=== PATIENT | female | born 1950 | race Caucasian/White ===

== ENCOUNTER 2020-05-13 10:06 | Outpatient (CLI) | payer MEDICARE, BC, SELFPAY ==
--- NOTE | 2020-05-13 10:11 | MM_ITS ---
WS: [id number] Bilateral screening digital mammogram, 05/13/2020 Clinical Data: SCREENING Comparison: 02/27/2019, 08/01/2017, 06/09/2015, 05/28/2013, 10/14/2009, 03/04/2006. Findings: The breast parenchymal pattern shows extreme density No spiculated masses or clustered calcifications are seen. There are no secondary signs of carcinoma. MM/[place] [id number] Impression: 1. Negative bilateral mammogram unchanged. 2. Recommend annual screening mammograms. BIRADS: 1-Negative FOLLOW UP: 1 Year Follow-up The CAD food checkers and cashiers supervisor was used.
== END 2020-05-13 10:07 | disposition home or self-care (01) ==
LOC: RADSHAW 10:09
PROVIDERS: PCP Family Medicine; Visit Provider Family Medicine
DX: Z12.31 Encounter for screening mammogram for malignant neoplasm of breast (principal)
CPT/HCPCS: 77067

== ENCOUNTER 2021-12-14 08:23 | Outpatient (CLI) | payer MEDICARE, BC, SELFPAY ==
--- NOTE | 2021-12-14 08:31 | MM_ITS ---
WS: [id number] BILATERAL SCREENING DIGITAL BREAST TOMOSYNTHESIS MAMMOGRAM WITH CAD HISTORY: SCREENING COMPARISON: 05/13/2020 and 02/27/2019 Bilateral CC and MLO views with tomosynthesis and synthetic mammography submitted. Computer aided det ection analyzed. Breast composition: The breasts are extremely dense, which lowers the sensitivity of mammography. No suspicious masses, microcalcifications or architectural distortion. Benign calcifications RIGHT breas t. MM/[place] [id number] IMPRESSION: BI-RADS: 2-Benign FOLLOW UP: 1 Year Follow-up
== END 2021-12-14 08:24 | disposition home or self-care (01) ==
LOC: RAD 08:25
PROVIDERS: PCP Family Medicine; Visit Provider Family Medicine
DX: Z12.31 Encounter for screening mammogram for malignant neoplasm of breast (principal)
CPT/HCPCS: 77063; 77067

== ENCOUNTER → 2022-01-11 13:13 | Outpatient (BNVA) | payer MEDICARE, BC, SELFPAY | PROVIDERS: PCP Family Medicine; Visit Provider Internal Medicine | DX: I25.10 Atherosclerotic heart disease of native coronary artery without angina pectoris (principal); E78.5 Hyperlipidemia, unspecified; Z98.61 Coronary angioplasty status; J44.9 Chronic obstructive pulmonary disease, unspecified | CPT/HCPCS: 99214 ==

== ENCOUNTER → 2022-10-11 14:49 | Outpatient (BNVA) | payer MEDICARE, SELFPAY | PROVIDERS: PCP Family Medicine; Visit Provider Internal Medicine | DX: I25.10 Atherosclerotic heart disease of native coronary artery without angina pectoris (principal); E78.5 Hyperlipidemia, unspecified; Z98.61 Coronary angioplasty status; J44.9 Chronic obstructive pulmonary disease, unspecified; Z79.82 Long term (current) use of aspirin | CPT/HCPCS: 99214 ==

== ENCOUNTER 2022-11-15 07:40 | Outpatient (CLI) | payer MEDICARE, SELFPAY ==
--- NOTE | 2022-11-15 | ECG_ITS ---
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 Interpretive Statements NAME OF STUDY: LEXISCAN SESTAMIBI STRESS TEST INDICATION: [Chest Pain; Shortness of Breath, ] Procedure: At the baseline, the blood pressure was 135/78 mmHg with a heart rate of 51 bpm. The electrocardiogram showed sinus bradycardia, normal axis with normal ST and T's. The Lexiscan was infused over a period of 20 seconds. A total of 0.4 mg of Lexiscan was infused. The stress phase was continued for a total of 5 minutes. Heart rate was at the end of stress phase was 72 bpm and a blood pressure of 142/76 mmHg. The EKG at the peak infusion revealed normal sinus rhythm with no significant ST-T wave changes. Sestamibi was injected 20 seconds after the Lexiscan infusion. Blood pressure at the end of recovery phase was 139/74 mmHg with a heart rate of 71 bpm. Conclusion: 1. Normal EKG response to Lexiscan infusion 2. No Lexiscan induced chest pain or cardiac arrhythmia. 3. Normal blood pressure and heart rate response. 4. Sestamibi/sestamibi perfusion scan pending; see separate report. Electronically Signed On 11-16-2022 15:07:33 CDT by Dominick Tran M.D. [id number]
--- NOTE | 2022-11-15 07:52 | NMCV_ITS ---
NM cammie perf SPECT r/s* [id number] Bailee Fairchild Age: 72 Gender: F : 1950 Exam Date: 11/15/2022 07:52 Ordering Phys: Dominick Tran M.D ([email or web address]) Technologist: TOD Calvillo Exam Location: [facility] Indications: CHEST PAIN, SHORTNESS OF BREATH STRESS TEST Please see separate stress [facility] for full findings IMAGE PROTOCOL Rest/Stress 1 Lexiscan Day Radiopharmaceutical Dose (mCi) Administration Site Administered by Rest: Tc-99m 10.9 IV TOD Calvillo Sestamibi Stress:Tc-99m 32.7 IV TOD Hinojosa Sestamibi Rest: 15-Nov-2022 60 Discovery 630 Stress: 15-Nov-2022 30 Discovery 630 0.4mg Lexiscan. Images obtained in supine and prone position. SPECT RESULTS Technical Quality: Excellent Raw Data Analysis: Normal Image Corrections: No attenuation or motion correction applied Summed Stress Score: 0 Summed Rest Score: 0 Summed Difference Score: 0 PERFUSION FINDINGS SPECT images demonstrate homogeneous tracer distribution throughout the myocardium. FUNCTIONAL RESULTS (calculated via Gated SPECT) Stress Image LV EF (%): 76 Stress EDV (mL):78 TID: 1.02 Stress ESV (mL):19 FUNCTIONAL FINDINGS: There is normal left ventricular systolic function. IMPRESSIONS 1. Normal myocardial perfusion imaging with no evidence of ischemia 2. LV systolic function is normal Dominick Tran MD (Electronically Signed) Final Date: 15 November 2022 17:00 S
[2022-11-15 08:13] VITALS: BMI 26.9
[2022-11-15] MEDS: regadenoson 0.4 Mg/5 ml Syringe IVP (10:02)
[2022-11-15 11:13] VITALS: BP 143/77; PULSE 73
== END 2022-11-15 07:41 | disposition home or self-care (01) ==
LOC: CDL 07:41
PROVIDERS: PCP Family Medicine; Visit Provider Internal Medicine
DX: R07.9 Chest pain, unspecified (principal); R06.02 Shortness of breath
CPT/HCPCS: 36415; 78452; 93017; 96374; A9500; J2785

== ENCOUNTER 2023-04-25 07:41 | Outpatient (CLI) | payer MEDICARE, SELFPAY ==
--- NOTE | 2023-04-25 08:15 | MM_ITS ---
WS: [id number] BILATERAL SCREENING DIGITAL TOMOSYNTHESIS MAMMOGRAM WITH CAD HISTORY: SCREENING COMPARISON: 12/14/2021, 05/13/2020 and 08/01/2017 Bilateral CC and MLO views with tomosynthesis and synthetic mammography submitted. Computer aided det ection analyzed. Breast composition: The breasts are heterogeneously dense, which may obscure small masses. No suspici ous masses, microcalcifications or architectural distortion. Long-term stability of an asymmetry in t he superior LEFT breast seen on the MLO projection. IMPRESSION: MM/[place] [id number] BI-RADS: 2-Benign FOLLOW UP: 1 Year Follow-up
== END 2023-04-25 07:42 | disposition home or self-care (01) ==
LOC: RAD 07:41
PROVIDERS: PCP Family Medicine; Visit Provider Family Medicine
DX: Z12.31 Encounter for screening mammogram for malignant neoplasm of breast (principal)
CPT/HCPCS: 77063; 77067

== ENCOUNTER → 2023-04-30 12:44 | Outpatient (BNVA) | payer MEDICARE, SELFPAY | PROVIDERS: PCP Family Medicine; Visit Provider Internal Medicine Cardiovascular Disease | DX: J44.9 Chronic obstructive pulmonary disease, unspecified (principal); I25.10 Atherosclerotic heart disease of native coronary artery without angina pectoris; E78.5 Hyperlipidemia, unspecified; Z98.61 Coronary angioplasty status | CPT/HCPCS: 99213 ==

== ENCOUNTER → 2023-10-30 11:44 | Outpatient (BNVA) | payer MEDICARE, SELFPAY | PROVIDERS: PCP Family Medicine; Visit Provider Internal Medicine Cardiovascular Disease | DX: I25.10 Atherosclerotic heart disease of native coronary artery without angina pectoris (principal); Z98.61 Coronary angioplasty status; E78.5 Hyperlipidemia, unspecified; J44.9 Chronic obstructive pulmonary disease, unspecified | CPT/HCPCS: 99213 ==

== ENCOUNTER 2024-04-29 07:36 | Outpatient (CLI) | payer MEDICARE, SELFPAY ==
--- NOTE | 2024-04-29 07:44 | MM_ITS ---
WS: [id number] BILATERAL SCREENING DIGITAL TOMOSYNTHESIS MAMMOGRAM WITH CAD HISTORY: SCREENING COMPARISON: 04/25/2023, 12/14/2021, 02/27/2019 Bilateral CC and MLO views with tomosynthesis and synthetic mammography submitted. Computer aided det ection analyzed. Breast composition: The breasts are extremely dense, which lowers the sensitivity of mammography. No suspicious masses, microcalcifications or architectural distortion. Long-term stability ovoid asymmet ry in the upper outer quadrant LEFT breast. Benign vascular calcifications in each breast. MM/MM scr tomosynthesis [id number] IMPRESSION: BI-RADS: 2 - Benign FOLLOW UP: 1 Year Follow-up
== END 2024-04-29 07:37 | disposition home or self-care (01) ==
PROVIDERS: PCP Family Medicine; Visit Provider Family Medicine
DX: Z12.31 Encounter for screening mammogram for malignant neoplasm of breast (principal); R92.333 Mammographic heterogeneous density, bilateral breasts; N64.89 Other specified disorders of breast; R92.1 Mammographic calcification found on diagnostic imaging of breast
CPT/HCPCS: 77063; 77067

== ENCOUNTER → 2024-05-05 13:54 | Outpatient (BNVA) | payer MEDICARE, SELFPAY | PROVIDERS: PCP Family Medicine; Visit Provider Internal Medicine Cardiovascular Disease | DX: I25.10 Atherosclerotic heart disease of native coronary artery without angina pectoris (principal); J44.9 Chronic obstructive pulmonary disease, unspecified; E78.5 Hyperlipidemia, unspecified; I10 Essential (primary) hypertension | CPT/HCPCS: 99213 ==

== ENCOUNTER 2024-09-05 22:41 | Inpatient (IN) | payer MEDICARE, SELFPAY ==
[2024-09-05 23:04] VITALS: BP 113/61; PULSE 74; RESP 16; TEMP 37.1; O2SAT 95
[2024-09-05 23:53] VITALS: BP 94/43; PULSE 74; RESP 16; O2SAT 96
[2024-09-06] VITALS (65 sets, daily range): BP systolic 77–127; BP diastolic 35–78; PULSE 63–88; RESP 15–16; TEMP 37; O2SAT 90–99; BMI 25.9
--- NOTE | 2024-09-06 00:02 | CTR_ITS ---
PROCEDURE INFORMATION: Exam: CT Head Without Contrast Exam date and time: 09/06/2024 12:48 AM Age: 74 years old Clinical indication: Pain; Headache; C/O HUERTA with n/v; Additional info: Severe HUERTA TECHNIQUE: Imaging protocol: Computed tomography of the head without contrast. Radiation optimization: All CT scans at this facility use at least one of these dose optimization techniques: automated exposure control; mA and/or kV adjustment per patient size (includes targeted exams where dose is matched to clinical indication); or iterative reconstruction. COMPARISON: CT head wo con* [id number] 04/12/2018 11:45 PM RADIATION DOSE METRICS: Total DLP (mGy-cm): 1077.2 FINDINGS: Brain: No acute intracranial hemorrhage, mass effect or midline shift. White matter hypodensities most likely from chronic microangiopathy. Cerebral ventricles: No ventriculomegaly. Paranasal sinuses: Visualized sinuses are unremarkable. No fluid levels. Mastoid air cells: Visualized mastoid air cells are well aerated. Bones: No acute bony findings. Soft tissues: Unremarkable. CT/CT head wo con* [id number] IMPRESSION: No acute intracranial findings.
[2024-09-06 00:17] LABS: INR 1.09 (0.8-1.2)
[2024-09-06 00:18] LABS: Partial Thromboplastin Time 28.5 SECONDS (23.9-36.7)
[2024-09-06 00:26] LABS: Alanine Aminotransferase 13 U/L (0-33); Albumin Level 3.9 g/dL (3.5-5.2); Alkaline Phosphatase 77 U/L (35-105); Anion Gap 18.5 (5-19); Aspartate Amino Transferase 23 U/L (0-32); Blood Urea Nitrogen 45 mg/dL (8-23); Calcium 9.4 mg/dL (8.5-10.5); Carbon Dioxide 23 mmol/L (22-29); Chloride 91 mmol/L (98-107); Creatinine Clr Calc Pharmacy 19.9952; Globulin 3.3 g/dL (1.3-4.6); Glucose 117 mg/dL (65-115); Osmolality Calculated 279 mOsm/kg (285-295); Potassium 4.5 mmol/L (3.5-5.1); Sodium 128 mmol/L (136-145); Total Bilirubin 1.7 mg/dL (0.15-1.2); Total Protein 7.2 g/dL (6.6-8.7)
[2024-09-06] MEDS: sodium chloride 0.9% 1,000 ML 999 ML IV ×2 (00:33→00:36)
[2024-09-06 00:35] LABS: D Dimer 2.65 ug/mLFEU (0-0.59)
[2024-09-06 00:35] LABS: Lactic Sepsis W/Reflex 2.5 mmol/L (0.5-2.2)
[2024-09-06 00:55] LABS: Basophils # 0.2 10^3/uL (0.0-0.1); Basophils % 0.8 %; Eosinophils # 0.2 10^3/uL (0.0-0.8); Lymphocytes # 0.6 10^3/uL (0.8-4.8); Lymphocytes % 3.1 %; Mean Corpuscular HGB Conc 32.9 g/dL (30-55); Mean Corpuscular Hemoglobin 30.7 pg (27-33); Mean Corpuscular Volume 93.5 fl (85-98); Monocytes # 0.7 10^3/uL (0.2-0.9); Monocytes % 3.6 %; Neutrophils # 17.94 10^3/uL (1.8-7.7); Neutrophils % 90.5 %; Nucleated Red Blood Cells % 0 %; Platelet Count 214 10^3/cmm (157-399); Red Blood Count 4.49 10^6/uL (3.85-5.65); Red Cell Distribution Width 11.9 % (12.1-15.1); Slide Review Slide Review Perform; White Blood Count 19.82 10^3/uL (3.29-11.43)
--- NOTE | 2024-09-06 01:04 | CTR_ITS ---
PROCEDURE INFORMATION: Exam: CTA Chest With Contrast Exam date and time: 09/06/2024 1:12 AM Age: 74 years old Clinical indication: Pain and abnormal findings; Abnormal lab test; Abnormal function test of other organs/systems and elevated wbc; Nausea and vomiting; Abdominal pain; Localized; Left upper quadrant (luq); Abnormal diagnostic tests; Elevated d-dimer; Shortness of breath; Other: N/a; Prior surgery; Surgery date: 6+ months; Surgery type: Coronary stent; C/O SOB with hypotension and luq pain. Dimer of 2.6. Wbc of 20k. Elevated bilirubin and crp. History of copd. ; Additional info: Luq left lower chest pain TECHNIQUE: Imaging protocol: Computed tomographic angiography of the chest with contrast. Exam focused on the arteries. 3D rendering (Not supervised by radiologist): MIP and/or 3D reconstructed images were created by the technologist. Radiation optimization: All CT scans at this facility use at least one of these dose optimization techniques: automated exposure control; mA and/or kV adjustment per patient size (includes targeted exams where dose is matched to clinical indication); or iterative reconstruction. Contrast material: OMNI 350; Contrast volume: 100 ml; Contrast route: INTRAVENOUS (IV); COMPARISON: CR XR chest 1V [id number] 04/12/2018 10:31 PM RADIATION DOSE METRICS: Total DLP (mGy-cm): 666.7 FINDINGS: Pulmonary arteries: No pulmonary emboli. Aorta: No aortic aneurysm. No aortic dissection. Lungs: Left upper lobe consolidation with air bronchograms. Left lower lobe nodule measuring 1.0 cm. Pleural spaces: No pneumothorax. No pleural effusion. Heart: No cardiomegaly. No pericardial effusion. Lymph nodes: No enlarged lymph nodes. Bones/joints: No acute fracture. Soft tissues: Unremarkable. PROCEDURE INFORMATION: Exam: CT Abdomen And Pelvis With Contrast Exam date and time: 09/06/2024 1:12 AM Age: 74 years old Clinical indication: Pain and abnormal findings; Abnormal lab test; Abnormal function test of other organs/systems and elevated wbc; Nausea and vomiting; Abdominal pain; Localized; Left upper quadrant (luq); Abnormal diagnostic tests; Elevated d-dimer; Shortness of breath; Other: N/a; Prior surgery; Surgery date: 6+ months; Surgery type: Coronary stent; C/O SOB with hypotension and luq pain. Dimer of 2.6. Wbc of 20k. Elevated bilirubin and crp. History of copd. ; Additional info: Luq left lower chest pain TECHNIQUE: Imaging protocol: Computed tomography of the abdomen and pelvis with contrast. Radiation optimization: All CT scans at this facility use at least one of these dose optimization techniques: automated exposure control; mA and/or kV adjustment per patient size (includes targeted exams where dose is matched to clinical indication); or iterative reconstruction. Contrast material: OMNI 350; Contrast volume: 100 ml; Contrast route: INTRAVENOUS (IV); COMPARISON: CR XR chest 1V [id number] 04/12/2018 10:31 PM RADIATION DOSE METRICS: Total DLP (mGy-cm): 666.7 FINDINGS: Liver: Right hepatic lobe cyst measuring 1.0 cm. Gallbladder and biliary ducts: Unremarkable. No calcified stones. No ductal dilation. Pancreas: Unremarkable. No ductal dilation. Spleen: Unremarkable. No mass. Adrenal glands: Unremarkable. No mass. Kidneys and ureters: Bilateral renal cysts, measuring to 1.5 cm. No hydronephrosis. Stomach and bowel: Colonic diverticulosis. No acute diverticulitis. No significant mucosal thickening. No bowel obstruction. Appendix: No evidence of appendicitis. Intraperitoneal space: No free air. No significant fluid collection. Vasculature: No abdominal aortic aneurysm. Lymph nodes: No enlarged lymph nodes. Urinary bladder: Unremarkable as visualized. Reproductive: Prominent bilateral ovarian and adnexal veins. Ill-defined submucosal lesion abutting the endometrium which is thickened (series 14, image 13). Bones/joints: No acute fracture. No suspicious lesion. Soft tissues: No bowel containing hernia. CT/CT angio chest w abd pel w con IMPRESSION: 1. No Pulmonary embolism. 2. Left upper lobe pneumonia. 3. 1.0 cm left lower lobe nodule. Per Chen society guidelines, consider follow-up CT in 3 months, PET-CT, or tissue sampling IMPRESSION: 1. No acute intra-abdominal findings. 2. Findings which may represent sequelae of pelvic congestion syndrome. 3. Endometrial thickening with possible submucosal lesion. Recommend follow-up pelvic ultrasound for further evaluation. COMMENTS: Consistent with the [employer]'s Incidental Findings Committee white paper (J Am Aurea Radiol 2018): Any incidental renal lesion less than 1 cm or classified as too small to characterize, or any incidental cystic renal lesion characterized as simple-appearing, is likely benign. No follow-up imaging is recommended for these lesions per consensus recommendations based on imaging criteria.
[2024-09-06] MEDS: iohexol 350 mg/mL 500 mL Btl (per mL) IV (01:15)
--- NOTE | 2024-09-06 01:48 | ED_ITS ---
HPI - General Adult 2 General: Chief complaint: Headache Stated complaint: extreme pressure in head cant eat/drink no urine Time Seen by Provider: 09/06/24 00:04 History of Present Illness: 74-year-old female who says she has been sick for the past couple of days. She says she has not been able to eat or drink much. She has had a global headache. She has had a pain in her left side of her chest and upper abdomen. No fever. She states she has been cold all the time. Generally weak. Related Data Home Medications ?Medication ?Instructions ?Recorded ?Confirmed alendronate 70 mg tablet mg PO 04/30/23 09/05/24 levothyroxine 75 mcg capsule 25 mcg PO DAILY 04/30/23 09/05/24 albuterol sulfate 2.5 mg/3 mL 2.5 mg inhalation DAILY 10/30/23 09/05/24 (0.083 %) solution for nebulization aspirin 81 mg tablet,delayed 81 mg PO DAILY 10/30/23 0 09/05/24 release lisinopril 10 1 tab PO DAILY 10/30/2308/2525 mg-hydrochlorothiazide 12.5 mg tablet budesonide 160 mcg-glycopyr 9 2 inh inhalation BID 03/1909/05/24 mcg-formot 4.8 mcg/actuation HFA inhaler (Breztri Vessix Vascularphere) Previous Rx's ?Medication ?Instructions ?Recorded nitroglycerin 0.4 mg sublingual 0.4 mg sublingual Q5M PRN chest 10/11/22 tablet pain #25 tabs rosuvastatin 20 mg tablet See Rx Instructions .Route 0 07/16/24 .COMPLEX #90 tabs metoprolol tartrate 25 mg tablet See Rx Instructions . Route 08/10/24 .COMPLEX #180 tabs fluticasone propionate 50 1 spray intranasal BID PRN 0 09/05/24 mcg/actuation nasal congestion #16 grams spray,suspension (Children's Flonase Allergy Relief) Allergies Allergy/AdvReac Type Severity Reaction Status Date / Time No Known Allergies Allergy Verified 09/05/24 23:08 [facility] ED 2 PFS: Medical History (Updated 09/06/24 @ 01:51 by Bebo Ford DO) Asthma COPD (chronic obstructive pulmonary disease) ASHD (arteriosclerotic heart disease) Dyslipidemia Surgical History S/P PTCA (percutaneous transluminal coronary angioplasty) Family History Father CAD (coronary artery disease) Social History Smoking and tobacco/nicotine status: never used tobacco/nicotine Alcohol intake: current Alcohol intake frequency: holidays/special occasions only Alcohol type: wine Substance/Drug Use: never Physical Exam 2 Const: GENERAL APPEARANCE: cooperative and ill appearing O RIENTATION/CONSCIOUSNESS: Yes awake HENMT: COMMON NORMALS: normocephalic, atraumatic and Normal external nose present HEAD & SCALP: normocephalic and atraumatic FACE & SINUS: normal facial exam and face symmetric NOSE: Normal external nose present Eye: COMMON NORMALS: Equal, round and reactive pupils present and EOMs intact bilaterally PUPIL: Yes Equal, round and reactive pupils present Neck/C-Spine: GENERAL: Yes trachea midline Chest: CHEST: Yes Symmetrical chest wall rise Resp: COMMON NORMALS: normal respiratory effort, No retractions and No use of accessory muscles Cardio: COMMON NORMALS: regular rate and regular rhythm RATE: regular rate RHYTHM: regular rhythm GI: COMMON NORMALS: Normal to inspection, nondistended, normoactive bowel sounds present Extremity: COMMON NORMALS: no pedal edema Neuro: NICHOLE COMA SCALE: document GCS findings Nichole coma scale eye opening: Spontaneous Nichole coma scale verbal response: Orientated [place] coma scale motor response: Obey commands [place] coma scale total score: 15 S ENSORY EXAM: Yes extremities (intact) Psych: COMMON NORMALS: speech normal SPEECH: Yes normal speech Skin: COMMON NORMALS: no rashes or lesions noted GENERAL SKIN EXAM: no rashes or lesions noted Course 2 Vital Signs: Vital signs: Vital Signs Temperature 98.8 F 09/05/24 23:04 Pulse Rate 70 09/06/24 02:27 Respiratory Rate 16 09/06/24 02:27 Blood Pressure 96/53 09/06/24 03:27 Pulse Oximetry 92 09/06/24 03:27 Oxygen Delivery Me thod Room Air 09/06/24 03:27 [facility] - General Adult Medical Decision Making Pain on palpation is minimally reproducible. Her blood pressure is low on arrival. She is given a sepsis bolus of more than 30 mL/kg. White blood cell count is 20. Creatinine is 2.2. Head CT is nonacute. Chest abdomen pelvis CT shows a left upper lobe pneumonia. She is given Rocephin and Zithromax after blood cultures. She will require fluid support, blood pressure support, etc. Spoke with hospitalist. Agrees to admission. She will go to the ICU. Started on Levophed here, as MAP was still low. Current blood pressure 104/50. Lab Data 09/06/24 00:00 09/06/24 00:[address] 09/06/24 00:02 IMPRESSION: No acute intracranial findings. Chest/Abdomen/Pelvis CT 09/06/24 01:04 IMPRESSION: 1. No Pulmonary embolism. 2. Left upper lobe pneumonia. 3. 1.0 cm left lower lobe nodule. Per Chen society guidelines, consider follow-up CT in 3 months, PET-CT, or tissue sampling IMPRESSION: 1. No acute intra-abdominal findings. 2. Findings which may represent sequelae of pelvic congestion syndrome. 3. Endometrial thickening with possible submucosal lesion. Recommend follow-up pelvic ultrasound for further evaluation. COMMENTS: Consistent with the [employer]'s Incidental Findings Committee white paper (J Am Aurea Radiol 2018): Any incidental renal lesion less than 1 cm or classified as too small to characterize, or any incidental cystic renal lesion characterized as simple-appearing, is likely benign. No follow-up imaging is recommended for these lesions per consensus recommendations based on imaging criteria. Laboratory Results WBC 19.82 10^3/uL (3.29-11.43) H 09/06/24 00:00 RBC 4.49 10^6/uL (3.85-5.65) 09/06/24 00:00 Hgb 13.80 g/dL (11.27-16.99) 09/06/24 00:00 Hct 42.0 % (36-47) 09/06/24 00:00 MCV 93.5 fl (85-98) 09/06/24 00:00 MCH 30.7 pg (27-33) 09/06/24 00:00 MCHC 32.9 g/dL (30-55) 09/06/24 00:00 RDW 11.9 % (12.1-15.1) L 09/06/24 00:00 Plt Count 214 10^3/cmm (157-399) 09/06/24 00:00 MPV 11.0 fL (7.4-10.4) H 09/06/24 00:00 Neut % (Auto) 90.5 % 09/06/24 00:00 Lymph % (Auto) 3.1 % 09/06/24 00:00 Dillon % (Auto) 3.6 % 09/06/24 00:00 Eos % (Auto) 1.0 % 09/06/24 00:00 Baso % (Auto) 0.8 % 09/06/24 00:00 Neut # (Auto) 17.94 10^3/uL (1.8-7.7) H 09/06/24 00:00 Lymph # (Auto) 0.6 10^3/uL (0.8-4.8) L 09/06/24 00:00 Dillon # (Auto) 0.7 10^3/uL (0.2-0.9) 09/06/24 00:00 Eos # (Auto) 0.2 10^3/uL (0.0-0.8) 09/06/24 00:00 Baso # (Auto) 0.2 10^3/uL (0.0-0.1) H 09/06/24 00:00 Nucleated RBC % (auto) 0 % 09/06/24 00:00 Nucleated RBCs # 0.0 /100WBC 09/06/24 00:00 PT 14.90 SECONDS (12.1-14.9) 09/06/24 00:00 INR 1.09 (0.8-1.2) 09/06/24 00:00 APTT 28.5 SECONDS (23.9-36.7) 09/06/24 00:00 D-Dimer 2.65 ug/mLFEU (0-0.59) H 09/05/24 23:56 Sodium 128 mmol/L (136-145) L 09/06/24 00:00 Potassium 4.5 mmol/L (3.5-5.1) 09/06/24 00:00 Chloride 91 mmol/L (98-107) L 09/06/24 00:00 Carbon Dioxide 23 mmol/L (22-29) 09/06/24 00:00 Anion Gap 18.5 (5-19) 09/06/24 00:00 BUN 45 mg/dL (8-23) H 09/06/24 00:00 Creatinine 2.2 mg/dL (0.5-0.9) H 09/06/24 00:00 GFR Calculation Not Reportable 09/06/24 00:00 Glucose 117 mg/dL (65-115) H 09/06/24 00:00 Calculated Osmolality 279 mOsm/kg (285-295) L 09/06/24 00:00 Lactic Acid 2.5 mmol/L (0.5-2.2) H 09/06/24 00:00 Calcium 9.4 mg/dL (8.5-10.5) 09/06/24 00:00 Total Bilirubin 1.7 mg/dL (0.15-1.2) H 09/06/24 00:00 AST 23 U/L (0-32) 09/06/24 00:00 ALT 13 U/L (0-33) 09/06/24 00:00 Alkaline Phosphatase 77 U/L (35-105) 09/06/24 00:00 C-Reactive Protein 313.0 mg/L (0.0-4.9) H 09/06/24 00:00 Total Protein 7.2 g/dL (6.6-8.7) 09/06/24 00:00 Albumin 3.9 g/dL (3.5-5.2) 09/06/24 00:00 Globulin 3.3 g/dL (1.3-4.6) 09/06/24 00:00 Urine Color Yellow (Yellow) 09/06/24 01:45 Urine Appearance Slightly cloudy (CLEAR) 09/06/24 01:45 Urine pH 5 (5-7) 09/06/24 01:45 Ur Specific [place] 1.015 (1.005-1.030) 09/06/24 01:45 Urine Protein 1+ (Negative) A 09/06/24 01:45 Urine Glucose (UA) Norm (Normal) 09/06/24 01:45 Urine Ketones Negative (Negative) 09/06/24 01:45 Urine Blood Neg (Negative) 09/06/24 01:45 Urine Nitrate Negative (Negative) 09/06/24 01:45 Urine Bilirubin 1+ (Negative) H 09/06/24 01:45 Urine Urobilinogen 1 mg/dL (Negative) H 09/06/24 01:45 Ur Leukocyte Esterase 2+ (Negative) A 09/06/24 01:45 Urine RBC 3-5 /hpf (0-2) 09/06/24 01:45 Urine WBC 51-100 /hpf (0-5) H 09/06/24 01:45 Ur Squamous Epith Cells 11-20 /hpf (0-5) H 09/06/24 01:45 Amorphous Sediment Not Reportable 09/06/24 01:45 Urine Bacteria None seen /hpf (NONE) 09/06/24 01:45 Hyaline Casts 127.02 /lpf 09/06/24 01:45 Influenza A (PCR) Negative (Negative) 09/06/24 01:45 Influenza Type B (PCR) Negative (Negative) 09/06/24 01:45 RSV (PCR) Negative (Negative) 09/06/24 01:45 SARS-CoV-2 (PCR) Negative (Negative) 09/06/24 01:45 All radiology interpretation(s) finalized by discharge Critical Care Time 2 Critical Care Time: Critical Care Time: Yes Total Critical Care Time: 40 Attestation: This case had a high probability of a clinically significant, sudden, or life threatening deterioration of this patient's condition which required my full and direct attention, intervention and personal management. Time is independent of any procedures performed. Discharge Plan Discharge Patient Disposition: Admitted As Inpatient Admit Provider: Sai Rosenbaum Clinical Impression: Community acquired pneumonia of left upper lobe of lung, Sepsis Condition: Serious Coding Level of Care Code ED Inventory Control/Shipping Receiving for Kaylee Vazquez
[2024-09-06 01:56] LABS: Reflex Lactate Order REFLEX LACTIC ORDERD
[2024-09-06 01:58] LABS: Bacteria Urine None Seen /hpf; Hyaline Casts Urine 127.02 /lpf; Universal Test for UA Present (0); WBC Urine 51-100 /hpf (0-5)
[2024-09-06] MEDS: sodium chloride 0.9% 1,000 ML 150 ML IV (01:59)
[2024-09-06 02:05] LABS: Urine Appearance Slightly Cloudy (CLEAR); Urine Color Yellow (Yellow)
[2024-09-06 02:06] LABS: Add Urine Culture? No; Add Urine Microscopic? YES; Bilirubin Urine 1+ (Negative); Blood Urine Neg (Negative); Glucose Urine UA Norm (Normal); Ketones Urine Negative (Negative); Leukocyte Esterase Urine 2+ (Negative); Nitrate Urine Negative (Negative); Protein Urine 1+ (Negative); Specific Gravity, Urine 1.015 (1.005-1.030); Urobilinogen Urine 1 mg/dL (Negative); pH Urine 5 (5-7)
[2024-09-06] MEDS: cefTRIAXone 1,000 mg SDV 1000 MG IVP ×2 (02:09→04:55)
[2024-09-06] MEDS: AZITHROMYCIN ADD-Vantage 500 MG in 0.9% NaCl ADD-Vantage 250 ML 250 MG IV (02:10)
[2024-09-06 02:29] LABS: Influenza A NEGATIVE (Negative); Influenza B NEGATIVE (Negative); Respiratory Syncytial Virus Ce NEGATIVE (Negative); SARS-CoV-2 PCR NEGATIVE (Negative)
[2024-09-06] MEDS: norepinephrine 4 MG/250 ML BAG 30 MG IV (02:36)
--- NOTE | 2024-09-06 04:02 | P.HP_ITS ---
Providers/Chief Complaint 2 Admitting Physician: Sai Rosenbaum MD Primary Care Provider: Cony Hudson MD Chief Complaint: extreme pressure in head cant eat/drink no urine History of Present Illness Bailee Fairchild is a 74 year old female comes in with headache and found to have left upper lung pneumonia. She was treated with azithromycin and Rocephin. She is referred for admission for the same. She has had hypotension. 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 Review of Systems 2 Narrative: General positive for chills no fever the last 2 days Cardiovascular no chest pain or palpitations she does have a history of a stent in the LAD Respiratory positive for cough nonproductive it is painful to cough. She denies sick contacts. GI positive for diarrhea no nausea vomiting or constipation no blood in stool Musculoskeletal no myalgias no dysuria Medications/Allergies Home Medications ?Medication ?Instructions ?Recorded ?Confirmed ?Last Taken ?Type nitroglycerin 0.4 mg sublingual 0.4 mg sublingual Q5M PRN chest 10/11/22 09/05/24 Unknown Rx tablet pain #25 tabs alendronate 70 mg tablet mg PO 04/30/23 09/05/24 Unkn own History levothyroxine 75 mcg capsule 25 mcg PO DAILY 04/30/23 09/05/24 Unknown History albuterol sulfate 2.5 mg/3 mL 2.5 mg inhalation DAILY 10/30/23 09/05/24 Unknown History (0.083 %) solution for nebulization aspirin 81 mg tablet,delayed 81 mg PO DAILY 10/30/23 0 09/05/24 Unknown History release lisinopril 10 1 tab PO DAILY 10/30/2308/25 Unknown History mg-hydrochlorothiazide 12.5 mg tablet budesonide 160 mcg-glycopyr 9 2 inh inhalation BID 03/1909/05/24 Unknown History mcg-formot 4.8 mcg/actuation HFA inhaler (Breztri Aerosphere) rosuvastatin 20 mg tablet See Rx Instructions .Route 0 07/16/24 09/05/24 Unknown Rx .COMPLEX #90 tabs metoprolol tartrate 25 mg tablet See Rx Instructions . Route 08/10/24 09/05/24 Unknown Rx .COMPLEX #180 tabs fluticasone propionate 50 1 spray intranasal BID PRN 0 09/05/24 09/05/24 Unknown Rx mcg/actuation nasal congestion #16 grams spray,suspension (Children's Flonase Allergy Relief) Allergies Allergy/AdvReac Type Severity Reaction Status Date / Time No Known Allergies Allergy Verified 09/05/24 23:08 PFSH Acute 2 PFSH: Medical History Asthma COPD (chronic obstructive pulmonary disease) ASHD (arteriosclerotic heart disease) Dyslipidemia Surgical History S/P PTCA (percutaneous transluminal coronary angioplasty) Family History (Updated 09/06/24 @ 04:12 by Sai Rosenbaum MD) Father CAD (coronary artery disease) Lung disease Mother Alzheimer's dementia Social History (Updated 09/06/24 @ 04:10 by Sai Rosenbaum MD) Smoking and tobacco/nicotine status: never used tobacco/nicotine Alcohol intake: current Alcohol intake frequency: holidays/special occasions only Alcohol type: wine Substance/Drug Use: never Additional social history: Patient is accompanied by her Sam. Patient states she wants full code Vitals/I&O/Wt Last Vital Signs Temp 98.8 F 09/05/24 23:04 Pulse 70 09/06/24 02:27 Resp 16 09/06/24 02:27 BP 96/53 09/06/24 03:27 Pulse Ox 92 09/06/24 03:27 O2 Del Method Room Air 09/06/24 03:27 09/05/24 09/05/24 09/06/24 14:59 22:59 06:59 Intake Total 3.75 / 2043.75 Balance 2043.75 / 2043.75 Weight last 48 hrs Weight 63.503 kg Physical Exam 2 Narrative: General well-developed well-nourished female in no acute cardiopulmonary distress she is currently in Trendelenburg and reports this as uncomfortable. CV regular rate and rhythm Lungs clear with poor air movement however on left anterior exam can hear few coarse crackles. Abdomen positive bowel sounds soft nontender Calves no tenderness pretrip edema Neck no masses Ears TMs intact bilaterally no erythema no pain on exam Data 09/06/24 00:00 09/06/24 00:00 Micro: Microbiology 09/06/24 00:25 Blood Culture - Preliminary Blood SPECIMEN COLLECTED 09/06/24 00:20 Blood Culture - Preliminary Blood SPECIMEN COLLECTED A&P Assessment and plan (1) Sepsis: Due to pneumonia continue with Rocephin and azithromycin. (2) Community acquired pneumonia of left upper lobe of lung: Patient with modest hyponatremia continue with saline. Continue with antibiotic therapy (3) COPD exacerbation: Start Decadron 4 mg twice a day first dose now PDMP PDMP Reviewed: Not Reviewed Attestations 2 Medical Necessity Statement*: Patient with white count and hypotension will require 2 midnights for antibiotics Coding Level of Care Code 17290 Diagnoses Sepsis A41.9 Community acquired pneumonia of left upper lobe of lung J18.9 COPD exacerbation J44.1 Time Spent (min) 75
[2024-09-06 04:33] LABS: Lactic Acid level (Lactate) 1.7 mmol/L (0.5-2.2)
[2024-09-06] MEDS: dexamethasone 4 mg Tablet PO ×2 (04:55→17:19)
[2024-09-06] MEDS: sodium chloride 0.9% 1,000 ML 100 ML IV ×2 (04:55→14:11)
[2024-09-06] MEDS: albuterol 2.5 mg/3 mL Neb INHALATION (08:35)
[2024-09-06] MEDS: azithromycin 250 mg Tablet 500 MG PO (08:48)
[2024-09-06] MEDS: aspirin 81 mg EC Tablet PO (08:48)
[2024-09-06] MEDS: norepinephrine 4 MG/250 ML BAG 22.5 MG IV (08:51)
--- NOTE | 2024-09-06 09:56 | PC.NURSE ---
Did bladder scan recorded 727ml before voiding and Residual 150
--- NOTE | 2024-09-06 13:39 | PM.MISC ---
Miscellaneous Note Note: Levophed is down to 2 mics. Blood pressure is better. Seen this morning. Continue management as per H&P. Awaiting urine culture to finalize. Check CBC CMP in AM. Lungs clear to auscultation Abdomen soft nontender Patient on room air at this time.
--- NOTE | 2024-09-06 19:00 | PC.NURSE ---
Levophed: Received update during report from daysmeft nurse that levophed has been off since 1600. Pump was paused but was still shown as running in JUL. Paused in JUL and updated to reflect current rate.
[2024-09-06] MEDS: ATORVASTATIN 10 MG TABLET 20 MG PO (20:57)
[2024-09-07] VITALS (50 sets, daily range): BP systolic 91–183; BP diastolic 41–108; PULSE 70–150; RESP 15–29; TEMP 36.4–37.1; O2SAT 92–96
--- NOTE | 2024-09-07 00:51 | ECG_ITS ---
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 Measurements Intervals [place] Rate: 143 P: 0 AL: 0 QRS: 88 QRSD: 100 T: -38 QT: 237 QTc: 366 Interpretive Statements ATRIAL FIBRILLATION WITH RAPID VENTRICULAR RESPONSE NONSPECIFIC ST & T-WAVE ABNORMALITY Compared to ECG 04/12/2018 22:48:15 T-wave abnormality now present Sinus bradycardia no longer present Electronically Signed On 09-07-2024 21:35:54 CDT by Catrachita Justice M.D. [email or web address] [id number]
--- NOTE | 2024-09-07 01:00 | PC.NURSE ---
Afib-RVR: Pt complaining of shortness of breath, HR noted to be in 140's-150's, EKG performed. Afib-RVR confirmed with EKG. Dr. Rosenbaum notified. New orders received.
[2024-09-07] MEDS: dilTIAZem 5 mg/mL SDV 5 mL 10 MG IVP (01:15)
[2024-09-07] MEDS: sodium chloride 0.9% 1,000 ML 100 ML IV ×2 (01:15→11:46)
[2024-09-07 01:21] LABS: Basophils # 0.1 10^3/uL (0.0-0.1); Basophils % 0.5 %; Eosinophils # 0.1 10^3/uL (0.0-0.8); Eosinophils % 0.5 %; Hematocrit 34.4 % (36-47); Lymphocytes # 0.4 10^3/uL (0.8-4.8); Lymphocytes % 2.2 %; Mean Corpuscular HGB Conc 33.1 g/dL (30-55); Mean Corpuscular Hemoglobin 30.6 pg (27-33); Mean Corpuscular Volume 92.5 fl (85-98); Mean Platelet Volume 10.7 fL (7.4-10.4); Monocytes # 1.1 10^3/uL (0.2-0.9); Monocytes % 6.7 %; Neutrophils # 13.92 10^3/uL (1.8-7.7); Neutrophils % 88.5 %; Nucleated Red Blood Cells % 0 %; Platelet Count 188 10^3/cmm (157-399); Red Blood Count 3.72 10^6/uL (3.85-5.65); Red Cell Distribution Width 12.1 % (12.1-15.1); White Blood Count 15.74 10^3/uL (3.29-11.43)
[2024-09-07] MEDS: dilTIAZem 100 MG in sodium chloride 0.9% (add-van) 100 ML IV (01:24)
[2024-09-07 01:31] LABS: Slide Review Slide Review Perform
[2024-09-07 01:46] LABS: Blood Urea Nitrogen 26 mg/dL (8-23); Calcium 8.4 mg/dL (8.5-10.5); Carbon Dioxide 19 mmol/L (22-29); Chloride 109 mmol/L (98-107); Creatinine Clr Calc Pharmacy 57.0633; Glucose 163 mg/dL (65-115); Magnesium 2.4 mg/dL (1.7-2.3); Osmolality Calculated 294 mOsm/kg (285-295); Sodium 138 mmol/L (136-145)
--- NOTE | 2024-09-07 03:00 | PC.NURSE ---
Pt HR still in 130's-140's maxed out on cardizem gtt. Dr. Rosenbaum notified, new order for metoprolol 150 mg IVP x one.
[2024-09-07] MEDS: amiodarone 50 mg/mL SDV 3 mL 150 MG IVP (03:17)
[2024-09-07] MEDS: amiodarone 150 MG/100 ML PREMIX 400 MG IV (03:51)
[2024-09-07] MEDS: cefTRIAXone 1,000 mg SDV 1000 MG IVP (04:21)
[2024-09-07] MEDS: levothyroxine 25 mcg Tablet PO (08:11)
[2024-09-07] MEDS: aspirin 81 mg EC Tablet PO (08:11)
[2024-09-07] MEDS: azithromycin 250 mg Tablet 500 MG PO (08:12)
[2024-09-07] MEDS: dexamethasone 4 mg Tablet PO ×2 (08:12→17:53)
--- NOTE | 2024-09-07 08:19 | PC.NURSE ---
Converted to Normal sinus at 0810.
--- NOTE | 2024-09-07 09:09 | USCV_ITS ---
Bailee Fairchild Age: 74 Gender: F : 1950 Exam Date: 09/07/2024 16:39 Ordering Phys: Elinor Richards MD Technologist: SRAVAN Exam Location: [facility] [place] Indication: Afib BP: 165 / 93 HR: 68 Rhythm: Sinus Technical Quality: Adequate MEASUREMENTS (Male / Female) Normal Values 2D ECHO LV Diastolic Diameter PLAX 4.6 cm 4.2 - 5.9 / 3.9 - 5.3 cm IVS Diastolic Thickness 1.0 cm 0.6 - 1.0 / 0.6 - 0.9 cm IVS Systolic Thickness 1.9 cm LVPW Diastolic Thickness 1.0 cm 0.6 - 1.0 / 0.6 - 0.9 cm LVPW Systolic Thickness 1.2 cm LVOT Diameter 2.0 cm LV Ejection Fraction 2D Teich 62.7 % LV Ejection Fraction MOD 4C 64.6 % LV Ejection Fraction MOD 2C 58.0 % LV Ejection Fraction 2C AL 59.5 % LA Diameter 2.8 cm RA Systolic Volume 4C AL 29.9 ml RA Systolic Volume 4C MOD 28.2 ml LA Sys Volume AL 33.9 cm cubed LA Sys Volume Index AL 19.0 cm cubed/m squared Aorta at Sinotubular Diameter 2.8 cm IVC Diameter 2.8 cm M-MODE LA Ao Ratio MM 1.8 AV Cusp Separation MM 1.7 cm DOPPLER AV Peak Velocity 129.0 cm/s LVOT Peak Velocity 93.0 cm/s AV Area Cont Eq vti 2.4 cm squared AV Area Cont Eq pk 2.2 cm squared MV Peak Velocity 98.0 cm/s MV Area PHT 4.9 cm squared Mitral E to A Ratio 1.1 TV Peak E Velocity 79.0 cm/s PV Peak Velocity 120.0 cm/s FINDINGS Left Ventricle Normal left ventricular size, systolic function and wall thickness, with no regional wall motion abnormalities. Left ventricular ejection fraction is estimated at 60 %. Grade I/IV diastolic dysfunction (abnormal relaxation filling pattern), normal to mildly elevated filling pressures. Right Ventricle The right ventricle is normal in size and function. Right Atrium The right atrium is normal in size. Left Atrium The left atrium is normal in size. Mitral Valve Mildly thickened mitral valve. No mitral valve stenosis. Trace mitral valve regurgitation. Aortic Valve Mild aortic valve calcification. No aortic valve stenosis. Trace aortic valve regurgitation. Tricuspid Valve Structurally normal tricuspid valve without significant stenosis or regurgitation. Pulmonary artery systolic pressure is normal. Pulmonic Valve Structurally normal pulmonic valve without significant stenosis. There is no pulmonic regurgitation. Pericardium Normal pericardium without effusion. Aorta Normal ascending aorta dimension. IVC The inferior vena cava appears normal. CONCLUSIONS Normal left ventricular size, systolic function and wall thickness, with no regional wall motion abnormalities. Left ventricular ejection fraction is estimated at 60 %. Grade I/IV diastolic dysfunction (abnormal relaxation filling pattern), normal to mildly elevated filling pressures. There is no pericardial effusion. No significant valve abnormalities. Right atrial pressure is around 5 mm of mercury. Nadya Sanches MD (Electronically Signed) Final Date: 09 September 2024 09:51 S
--- NOTE | 2024-09-07 09:24 | ECG_ITS ---
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 Measurements Intervals [place] Rate: 76 P: 59 CT: 154 QRS: 81 QRSD: 105 T: 28 QT: 389 QTc: 438 Interpretive Statements SINUS RHYTHM Compared to ECG 09/07/2024 00:54:49 Atrial fibrillation no longer present T-wave abnormality no longer present Electronically Signed On 09-07-2024 21:31:54 CDT by Catrachita Justice M.D. [email or web address] [id number]
[2024-09-07 10:00] LABS: Troponin(5th) Baseline 8 ng/L (0-10)
--- NOTE | 2024-09-07 11:33 | ECG_ITS ---
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 Measurements Intervals [place] Rate: 69 P: 58 PA: 157 QRS: 76 QRSD: 101 T: 28 QT: 425 QTc: 456 Interpretive Statements SINUS RHYTHM MODERATE T-WAVE ABNORMALITY, CONSIDER ANTERIOR ISCHEMIA [-0.1+ mV T-WAVE IN V3/V4] Compared to ECG 09/07/2024 09:24:52 T-wave abnormality now present Possible ischemia now present Electronically Signed On 09-07-2024 21:38:01 CDT by Catrachita Justice M.D. [id number]
[2024-09-07 11:44] LABS: Troponin 5 2HR 6.92 ng/L (0-10)
[2024-09-07 11:51] LABS: Troponin 5 2HR Delta -1.08 ABS# (0-10)
[2024-09-07] MEDS: amiodarone 200 mg Tablet 400 MG PO ×2 (11:53→17:53)
--- NOTE | 2024-09-07 14:44 | PC.NURSE ---
Nurse ambulated patient. Walked about 100 feet. Heart rythm remained normal sinus at 90BPM with activity. HOwever SPO2 dropped to 84%. Patient's O2 did not recover at rest, required 2L NC. After just a few minutes her SPO2 was 95%+ and the nasal cannula was no longer needed.
--- NOTE | 2024-09-07 16:05 | PM.PN ---
Subjective Subjective: Overnight patient went into A-fib with RVR. Initially she was started on a Cardizem drip which was transitioned to IV amiodarone at around 7 AM this morning as she continued to be in A-fib RVR. At the time of my assessment at around 9:30 AM patient was in sinus rhythm with heart rate at 70 bpm. She is off pressors now. Patient states that she has felt on and off palpitations and shortness of breath for about 1 year now. She denies any formal diagnosis of A-fib in the past that this is a new development for her. She is currently established with cardiology and follows regularly. She denies ever having had an event monitor in the past. Patient is very active at baseline, rides horses. Does not usually wear any protective gear while wearing her shoes. No history of recurrent falls. She states some of the animals could rough [place] [address] today. Medications: Reviewed: Yes Vitals/I&O/Wt Last Vital Signs Temp 97.5 F L 09/07/24 13:30 Pulse 79 09/07/24 15:00 Resp 16 09/07/24 08:23 BP 151/96 09/07/24 15:00 Pulse Ox 93 09/07/24 15:00 O2 Del Method Room Air 09/07/24 13:30 09/07/24 09/07/24 09/07/24 06:59 14:59 22:59 Intake Total 1171.083 / 4235.313 1605.875 / 1605.875 Output Total 600 / 2400 400 / 400 Balance 571.083 / 0978.894 0986.875 / 1205.875 Weight last 48 hrs Weight 69.5 kg Weight 69.5 kg Weight 69 kg Weight 68.5 kg Weight 63.503 kg Physical Exam Narrative: General: No acute distress, AO x3 HEENT: PERRLA, pupils bilaterally equal and reactive, pallors not present Chest: Normal vesicular breath sounds, no added sounds, equal good air entry bilaterally CVS: S1-S2 regular, no murmurs, no tachycardia, no gallops, no rubs Abdomen: Soft, nontender, no organomegaly, bowel sounds present Neuro: No focal deficits, no facial deformity, AO x3, power 5/5 in all limbs Urinary Catheter Management: Bermudez: Cath Placed During This Visit: yes Reason for Continuing Indwelling Catheter: Accurate Measurement of Urinary Output in Critically Ill Patients Urinary Catheter Date of Insertion: 09/07/24 Urinary Catheter Time of Insertion: 04:30 Data 09/07/24 01:15 09/07/24 01:15 Micro: Microbiology 09/07/24 11:50 Legionella Urinary Antigen - Final Urine Catheterized 09/06/24 00:25 Blood Culture - Preliminary Blood NEGATIVE TO DATE 09/06/24 00:20 Blood Culture - Preliminary Blood NEGATIVE TO DATE A&P Assessment and plan (1) Sepsis: Due to pneumonia continue with Rocephin and azithromycin. (2) Community acquired pneumonia of left upper lobe of lung: Patient with modest hyponatremia continue with saline. Continue with antibiotic therapy (3) COPD exacerbation: Start Decadron 4 mg twice a day first dose now (4) Atrial fibrillation with RVR: Plan September 07 2024 Patient is off pressors. Noted to have A-fib with RVR overnight. Initially started on Cardizem drip however remained in A-fib RVR therefore transition to amiodarone. Potentially A-fib may have been longstanding given patient has been complaining of palpitations over the past year versus a new finding triggered by left lower lobe pneumonia. Continue antibiotic coverage with ceftriaxone and azithromycin. Obtain sputum culture and Gram stain, urine bacterial and Legionella antigens. Discussed with patient initiating anticoagulation given discovery of A-fib. Patient lives horses quite frequently. Does not wear any protective equipment. States that the animals could potentially get rough. High risk of bleeding in case of injury. Not yet convinced to start anticoagulation with DOAC's. Discussed with her placing an event monitor to estimate frequency of A-fib over the next 3 weeks and setting up follow-up with cardiology as an outpatient. Patient is currently established with Dr. Sanches. She would prefer the latter. At discharge will aim to resume her metoprolol as she is now off of Levophed. For today transition to oral amiodarone after discontinuing the IV infusion. Transfer out of [facility] to [facility]. Blood culture remains negative to date. PDMP PDMP Reviewed: Not Reviewed Attestations Medical Necessity Statement*: Continue IV antibiotics, transition IV amiodarone to oral amiodarone. Coding Level of Care Code Acute Code for [facility] Diagnoses Sepsis A41.9 Community acquired pneumonia of left upper lobe of lung J18.9 COPD exacerbation J44.1 Atrial fibrillation with RVR I48.91
--- NOTE | 2024-09-07 16:37 | ECG_ITS ---
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 Measurements Intervals [place] Rate: 77 P: 57 VT: 154 QRS: 71 QRSD: 105 T: 19 QT: 388 QTc: 441 Interpretive Statements SINUS RHYTHM MODERATE T-WAVE ABNORMALITY, CONSIDER ANTERIOR ISCHEMIA [-0.1+ mV T-WAVE IN V3/V4] Compared to ECG 09/07/2024 11:33:45 No significant changes Electronically Signed On 09-07-2024 21:36:25 CDT by Catrachita Justice M.D. [id number]
[2024-09-07] MEDS: hyDRALAzine 20 mg/mL INJ 1 mL 10 MG IVP (19:01)
[2024-09-07] MEDS: MELATONIN 3 MG TABLET 9 MG PO (21:35)
[2024-09-07] MEDS: ATORVASTATIN 10 MG TABLET 20 MG PO (21:36)
[2024-09-08] VITALS (39 sets, daily range): BP systolic 147–181; BP diastolic 79–104; PULSE 60–96; RESP 16–32; TEMP 36.3–36.9; O2SAT 85–98
[2024-09-08 03:48] LABS: Basophils # 0.1 10^3/uL (0.0-0.1); Basophils % 0.4 %; Eosinophils % 0.3 %; Lymphocytes # 0.5 10^3/uL (0.8-4.8); Lymphocytes % 4.3 %; Mean Corpuscular HGB Conc 32.7 g/dL (30-55); Mean Corpuscular Hemoglobin 30.8 pg (27-33); Mean Platelet Volume 10.7 fL (7.4-10.4); Monocytes # 0.6 10^3/uL (0.2-0.9); Monocytes % 5.6 %; Neutrophils # 9.52 10^3/uL (1.8-7.7); Neutrophils % 85.3 %; Nucleated Red Blood Cells % 0 %; Platelet Count 223 10^3/cmm (157-399); Red Blood Count 3.51 10^6/uL (3.85-5.65); Red Cell Distribution Width 12.7 % (12.1-15.1); White Blood Count 11.17 10^3/uL (3.29-11.43)
[2024-09-08 04:23] LABS: Alanine Aminotransferase 13 U/L (0-33); Albumin Level 3.1 g/dL (3.5-5.2); Alkaline Phosphatase 65 U/L (35-105); Chloride 113 mmol/L (98-107); Potassium 4.6 mmol/L (3.5-5.1); Sodium 145 mmol/L (136-145)
[2024-09-08 04:37] LABS: Anion Gap 15.6 (5-19); Aspartate Amino Transferase 18 U/L (0-32); Blood Urea Nitrogen 26 mg/dL (8-23); Calcium 8.2 mg/dL (8.5-10.5); Carbon Dioxide 21 mmol/L (22-29); Creatinine Clr Calc Pharmacy 57.2522; Globulin 1.8 g/dL (1.3-4.6); Glucose 138 mg/dL (65-115); Osmolality Calculated 307 mOsm/kg (285-295); Total Bilirubin 0.2 mg/dL (0.15-1.2); Total Protein 4.9 g/dL (6.6-8.7)
[2024-09-08] MEDS: cefTRIAXone 1,000 mg SDV 1000 MG IVP (04:47)
--- NOTE | 2024-09-08 07:04 | PC.NURSE ---
Hallucinations audible and visual, non threatening or commanding. vitals stable. NIHS done score 0. At 2140 Dr. Rosa made aware of this. Ct head negative on admit. Patient also reported having similiar issues at home occasionally over last couple of months. Medications reviewed and TSH ordered for this am. Report of above given to Butch DOMINGUEZ at shift change.
[2024-09-08] MEDS: amiodarone 200 mg Tablet 400 MG PO ×2 (08:04→17:11)
[2024-09-08] MEDS: azithromycin 250 mg Tablet 500 MG PO (08:05)
[2024-09-08] MEDS: levothyroxine 25 mcg Tablet PO (08:05)
[2024-09-08] MEDS: aspirin 81 mg EC Tablet PO (08:05)
[2024-09-08] MEDS: dexamethasone 4 mg Tablet PO (08:05)
[2024-09-08] MEDS: FUROsemide 10 mg/mL SDV 2mL 20 MG IVP (12:48)
--- NOTE | 2024-09-08 13:27 | PM.PN ---
Subjective Subjective: Leukocytosis resolved now at 11.17. Creatinine stable. Developing lower extremity edema. States that her chest feels tight. Medications: Reviewed: Yes Vitals/I&O/Wt Last Vital Signs Temp 97.3 F L 09/08/24 13:00 Pulse 78 09/08/24 13:00 Resp 23 H 09/08/24 13:00 BP 154/97 09/08/24 13:00 Pulse Ox 96 09/08/24 13:00 O2 Del Method Room Air 09/08/24 13:00 O2 Flow Rate 2 09/08/24 07:29 09/07/24 09/08/24 09/08/24 22:59 06:59 14:59 Intake Total 1238.333 / 3037.522 180 / 3217.522 200 / 200 Output Total 200 / 600 900 / 1500 100 / 100 Balance 1038.333 / 2437.522 -720 / 1717.522 100 / 100 Weight last 48 hrs Weight 69.5 kg Weight 69.5 kg Physical Exam Narrative: General: No acute distress, AO x3 HEENT: PERRLA, pupils bilaterally equal and reactive, pallors not present Chest: Normal vesicular breath sounds, no added sounds, equal good air entry bilaterally CVS: S1-S2 regular, no murmurs, no tachycardia, no gallops, no rubs Abdomen: Soft, nontender, no organomegaly, bowel sounds present Neuro: No focal deficits, no facial deformity, AO x3, power 5/5 in all limbs Urinary Catheter Management: Bermudez: Cath Placed During This Visit: yes Reason for Continuing Indwelling Catheter: Accurate Measurement of Urinary Output in Critically Ill Patients Urinary Catheter Date of Insertion: 09/07/24 Urinary Catheter Time of Insertion: 04:30 Data 09/08/24 03:27 09/08/24 03:27 Micro: Microbiology 09/08/24 08:45 Gram Stain - Final Sputum - Expectorated Sputum 09/07/24 11:50 Bacterial Antigens - Final Urine,Voided 09/07/24 11:50 Legionella Urinary Antigen - Final Urine Catheterized A&P Assessment and plan (1) Sepsis: Due to pneumonia continue with Rocephin and azithromycin. (2) Community acquired pneumonia of left upper lobe of lung: Patient with modest hyponatremia continue with saline. Continue with antibiotic therapy (3) COPD exacerbation: Start Decadron 4 mg twice a day first dose now (4) Atrial fibrillation with RVR: Plan September 07 2024 Patient is off pressors. Noted to have A-fib with RVR overnight. Initially started on Cardizem drip however remained in A-fib RVR therefore transition to amiodarone. Potentially A-fib may have been longstanding given patient has been complaining of palpitations over the past year versus a new finding triggered by left lower lobe pneumonia. Continue antibiotic coverage with ceftriaxone and azithromycin. Obtain sputum culture and Gram stain, urine bacterial and Legionella antigens. Discussed with patient initiating anticoagulation given discovery of A-fib. Patient lives horses quite frequently. Does not wear any protective equipment. States that the animals could potentially get rough. High risk of bleeding in case of injury. Not yet convinced to start anticoagulation with DOAC's. Discussed with her placing an event monitor to estimate frequency of A-fib over the next 3 weeks and setting up follow-up with cardiology as an outpatient. Patient is currently established with Dr. Sanches. She would prefer the latter. At discharge will aim to resume her metoprolol September 08/2025 Leukocytosis has resolved. Now at 11,000. Patient is 94% on room air. States that her chest feels tight today. Noted to have crackles on exam and lower extremity edema. Concern for hypervolemia likely secondary to fluid resuscitation. Lasix 20 mg IV now. Closely monitor urine output and kidney function. Echocardiogram taken yesterday, results are pending. Continue ceftriaxone and azithromycin for pneumonia. Currently remains in sinus rhythm with heart rate between 70 to 80 bpm. Resume home dose of lisinopril lites trending towards hypertension with systolic blood pressure in the 150s now. Additionally resume metoprolol 12.5 mg p.o. twice daily. Patient takes inhalers at home for COPD. Start DuoNeb and budesonide scheduled inhalation. Reduce dose of dexamethasone to 4 mg p.o. daily. Noted to have low TSH at 0.1. Check free T3 and T4. May need adjustment of levothyroxine dose. PDMP PDMP Reviewed: Not Reviewed Attestations Medical Necessity Statement*: IV diuresis today, resume antihypertensives, resume metoprolol closely monitor heart rate. Coding Level of Care Code Acute Code for [facility] Diagnoses Sepsis A41.9 Community acquired pneumonia of left upper lobe of lung J18.9 COPD exacerbation J44.1 Atrial fibrillation with RVR I48.91
[2024-09-08] MEDS: lisinopril 10 mg Tablet PO (13:45)
[2024-09-08 14:00] LABS: T3 Free 1.4 PG/ML (2.0-4.4)
[2024-09-08] MEDS: hyDRALAzine 20 mg/mL INJ 1 mL 10 MG IVP (15:05)
--- NOTE | 2024-09-08 17:55 | PC.NURSE ---
Patient arrived on unit accompanied by her .
[2024-09-08] MEDS: levalbuterol 0.63 mg/3 mL Neb INHALATION (18:24)
[2024-09-08] MEDS: budesonide 0.5 mg/2 mL Neb INHALATION (19:53)
[2024-09-08] MEDS: ipratropium-albuterol 3 mL Neb INHALATION (19:53)
[2024-09-08] MEDS: ALPRAZolam 0.5 mg Tablet PO (20:12)
[2024-09-08] MEDS: ATORVASTATIN 10 MG TABLET 20 MG PO (20:12)
[2024-09-08] MEDS: metoprolol tartrate 25 mg Tablet 12.5 MG PO (20:13)
[2024-09-09] VITALS (7 sets, daily range): BP systolic 121–127; BP diastolic 62–77; PULSE 65–73; RESP 18–31; TEMP 36.4–36.7; O2SAT 91–97
[2024-09-09] MEDS: cefTRIAXone 1,000 mg SDV 1000 MG IVP (04:05)
[2024-09-09 06:00] LABS: Mean Corpuscular HGB Conc 32.6 g/dL (30-55); Mean Corpuscular Hemoglobin 30.3 pg (27-33); Mean Corpuscular Volume 93.1 fl (85-98); Mean Platelet Volume 10.6 fL (7.4-10.4); Platelet Count 297 10^3/cmm (157-399); Red Blood Count 3.76 10^6/uL (3.85-5.65); Red Cell Distribution Width 12.8 % (12.1-15.1)
[2024-09-09 06:07] LABS: Alanine Aminotransferase 15 U/L (0-33); Alkaline Phosphatase 60 U/L (35-105); Anion Gap 15.2 (5-19); Aspartate Amino Transferase 18 U/L (0-32); Blood Urea Nitrogen 35 mg/dL (8-23); Calcium 8.6 mg/dL (8.5-10.5); Carbon Dioxide 24 mmol/L (22-29); Chloride 106 mmol/L (98-107); Creatinine Clr Calc Pharmacy 58.3856; Globulin 2.6 g/dL (1.3-4.6); Glucose 108 mg/dL (65-115); Osmolality Calculated 301 mOsm/kg (285-295); Potassium 4.2 mmol/L (3.5-5.1); Sodium 141 mmol/L (136-145); Total Bilirubin 0.2 mg/dL (0.15-1.2); Total Protein 5.6 g/dL (6.6-8.7)
[2024-09-09 06:34] LABS: Slide Review Slide Review Perform
[2024-09-09 06:35] LABS: Eosinophils 0 %; Lymphocytes 10 %; Monocytes Absolute 1.1 10^3/cmm (0.1-0.6); Platelet Estimate Normal (Normal); Total Cells Counted 100 (0-100)
[2024-09-09 06:36] LABS: Segmented Neutrophils 70 %
--- NOTE | 2024-09-09 07:01 | USCV_ITS ---
Bailee Fairchild Age: 74 Gender: F : 1950 Exam Date: 09/09/2024 09:35 Ordering Phys: Elinor Richards MD Technologist: [place] [facility] [place]: [place] PROCEDURES: The venous duplex Doppler examination of both lower extremities was performed in the standard fashion. The following venous structures were evaluated: common femoral vein, profunda vein, proximal portion of the greater saphenous vein, superficial femoral vein, and the popliteal vein. In addition, the posterior tibial and peroneal trunk were evaluated. FINDINGS: Normal 2-D Doppler and augmentation and compressibility throughout the lower extremity venous structures. Additional imaging through the proximal calf veins also reveals no thrombus. Limited evaluation of the greater saphenous vein is patent with no thrombus. CONCLUSIONS No DVT bilateral lower extremities. Dr. Tawny Cowart DO (Electronically Signed) Final Date: 09 September 2024 10:49 S
[2024-09-09] MEDS: budesonide 0.5 mg/2 mL Neb INHALATION (08:13)
[2024-09-09] MEDS: ipratropium-albuterol 3 mL Neb INHALATION ×2 (08:14→13:33)
[2024-09-09] MEDS: lisinopril 10 mg Tablet PO (08:37)
[2024-09-09] MEDS: aspirin 81 mg EC Tablet PO (08:37)
[2024-09-09] MEDS: levothyroxine 25 mcg Tablet PO (08:37)
[2024-09-09] MEDS: dexamethasone 4 mg Tablet PO (08:37)
[2024-09-09] MEDS: amiodarone 200 mg Tablet 400 MG PO (08:37)
[2024-09-09] MEDS: azithromycin 250 mg Tablet 500 MG PO (08:37)
[2024-09-09] MEDS: metoprolol tartrate 25 mg Tablet 12.5 MG PO (08:37)
--- NOTE | 2024-09-09 09:54 | XRR_ITS ---
PROCEDURE INFORMATION: Exam: XR Chest Exam date and time: 09/09/2024 10:11 AM Age: 74 years old Clinical indication: Condition or disease; Lung condition and disease; Pneumonia; Prior surgery; Surgery date: 6+ months; Surgery type: Coronary stent; Additional info: Follow up pneumonia TECHNIQUE: Imaging protocol: Radiologic exam of the chest. Views: 1 view. COMPARISON: CT angio chest w abd pel w con 09/06/2024 1:12 AM FINDINGS: Lungs: Pulmonary vessels are within normal limits. There is better aeration of the left upper lobe with residual infiltrate. Right pulmonary nodules are stable. Pleural spaces: Small left-sided pleural effusion. Heart/Mediastinum: Cardiomegaly is seen. Bones/joints: Unremarkable. XR/XR chest 1V portable [id number] IMPRESSION: 1. There is better aeration of the left upper lobe with residual infiltrate. 2. Small left-sided pleural effusion. 3. Cardiomegaly.
--- NOTE | 2024-09-09 12:42 | P.DS_ITS ---
Discharge Providers Date of Admission: 09/06/24 03:38 Date of Discharge: September 09, 2024 Attending Provider at Admission: Sai Rosenbaum MD Attending Provider at Discharge: Elinor Richards MD Primary Care Provider: Cony Hudson MD Diagnoses at Discharge Discharge Diagnosis (1) Sepsis: Status: Acute (2) Community acquired pneumonia of left upper lobe of lung: Status: Acute (3) COPD exacerbation: Status: Acute (4) Atrial fibrillation with RVR: Status: Acute Reason for Visit Reason for Visit: extreme pressure in head cant eat/drink no urine Hospital Course Hospital Course 74-year-old lady with a past medical history of fever chills and headache presented to the emergency room on September 06, 2024 and was found to have a left upper lobe pneumonia. She was hypotensive upon arrival and needed pressor support at the time of admission. She was also suffering from a COPD exacerbation and needed to be on steroids for the same. She was treated with ceftriaxone and azithromycin. Her white blood cell count trended reassuringly down from 19,000 to normal now. Blood cultures remain negative to date. Sputum culture remains pending at the time of discharge.. Urine Legionella and bacterial antigens were negative. Hospital course was also notable for DORON upon arrival with creatinine of 2.2. Lisinopril was held initially and then resumed once kidney function recovered. She also developed hypervolemia, likely from aggressive fluid resuscitation and needed to get Lasix intermittent doses for relief. She has a new oxygen requirement of 2 L/min supplemental O2. Today her breathing is better. Patient states she feels much improved. She has been afebrile. Chest x-ray was repeated today which shows better aeration. Residual infiltrate noted, however expected to last over the next 2 to 3 weeks. She has a small left-sided pleural effusion which is considered to be parapneumonic, serial x-ray recommended in 2 to 3 weeks. Hospital course was also notable for discovery of A-fib. Patient denies any known past history of atrial fibrillation though endorses intermittent palpitations over the past year. Echocardiogram showed LVEF of 60%, grade 1 diastolic dysfunction no pericardial effusion. She was initially placed last on a Cardizem infusion, however thereafter was transitioned to amiodarone infusion when A-fib continued to be persistent. She converted into sinus rhythm with initiation of amiodarone and is being discharged home on amiodarone and metoprolol. We discussed initiation of anticoagulation, however patient declined at this time. Event monitor is recommended at the time of discharge. Case was discussed with her outpatient remote ruby on rails developer Dr. Sanches who agreed to ordering the event monitor. We recommend follow-up with cardiology in the next 2 to 3 weeks. Physical Exam Narrative: General: No acute distress, AO x3 HEENT: PERRLA, pupils bilaterally equal and reactive, pallors not present Chest: Normal vesicular breath sounds, no added sounds, equal good air entry bilaterally CVS: S1-S2 regular, no murmurs, no tachycardia, no gallops, no rubs Abdomen: Soft, nontender, no organomegaly, bowel sounds present Neuro: No focal deficits, no facial deformity, AO x3, power 5/5 in all limbs Urinary Catheter Management: Bermudez: Cath Placed During This Visit: yes Reason for Continuing Indwelling Catheter: Accurate Measurement of Urinary Output in Critically Ill Patients Urinary Catheter Date of Insertion: 09/07/24 Urinary Catheter Time of Insertion: 04:30 Discharge Data Studies Completed and Pending Completed Studies During Hospitalization Category Date Time Status CT head wo con* [id number] Stat Cat Scan 09/06/24 00:[address] abdomen pelvis [CT Angio Chest + Abdomen Cat Scan 09/06/24 01:04 Completed Pelvis w/ contrast; [id number] + [id number]] Stat XR chest 1V portable [id number] Urgent Exams 09/09/24 09:54 [place] [id number] Routine Ultrasound 09/09/24 07:01 Completed CV. echo complete* [id number] Routine Ultrasound 09/07/24 09:09 Completed Pending at discharge Category Date Time Status Blood Culture Stat Lab 09/06/24 00:25 Results Sputum Culture and Gram Stain Routine Lab 09/07/24 09:08 Results Radiology Impressions Head CT 09/06/24 00:02 IMPRESSION: No acute intracranial findings. Chest/Abdomen/Pelvis CT 09/06/24 01:04 IMPRESSION: 1. No Pulmonary embolism. 2. Left upper lobe pneumonia. 3. 1.0 cm left lower lobe nodule. Per Chen society guidelines, consider follow-up CT in 3 months, PET-CT, or tissue sampling IMPRESSION: 1. No acute intra-abdominal findings. 2. Findings which may represent sequelae of pelvic congestion syndrome. 3. Endometrial thickening with possible submucosal lesion. Recommend follow-up pelvic ultrasound for further evaluation. COMMENTS: Consistent with the [place] [employer]'s Incidental Findings Committee white paper (J Am Aurea Radiol 2018): Any incidental renal lesion less than 1 cm or classified as too small to characterize, or any incidental cystic renal lesion characterized as simple-appearing, is likely benign. No follow-up imaging is recommended for these lesions per consensus recommendations based on imaging criteria. Chest X-Ray 09/09/24 09:54 IMPRESSION: 1. There is better aeration of the left upper lobe with residual infiltrate. 2. Small left-sided pleural effusion. 3. Cardiomegaly. Laboratory Results WBC 8.60 10^3/uL (3.29-11.43) 09/09/24 05:11 RBC 3.76 10^6/uL (3.85-5.65) L 09/09/24 05:11 Hgb 11.40 g/dL (11.27-16.99) 09/09/24 05:11 Hct 35.0 % (36-47) L 09/09/24 05:11 MCV 93.1 fl (85-98) 09/09/24 05:11 MCH 30.3 pg (27-33) 09/09/24 05:11 MCHC 32.6 g/dL (30-55) 09/09/24 05:11 RDW 12.8 % (12.1-15.1) 09/09/24 05:11 Plt Count 297 10^3/cmm (157-399) D 09/09/24 05:11 MPV 10.6 fL (7.4-10.4) H 09/09/24 05:11 Neut % (Auto) 85.3 % 09/08/24 03:27 Lymph % (Auto) Not Reportable 09/09/24 05:11 Saunders % (Auto) Not Reportable 09/09/24 05:11 Eos % (Auto) 0.3 % 09/08/24 03:27 Baso % (Auto) 0.4 % 09/08/24 03:27 Neut # (Auto) 9.52 10^3/uL (1.8-7.7) H 09/08/24 03:27 Lymph # (Auto) Not Reportable 09/09/24 05:11 Saunders # (Auto) Not Reportable 09/09/24 05:11 Eos # (Auto) 0.0 10^3/uL (0.0-0.8) 09/08/24 03:27 Baso # (Auto) 0.1 10^3/uL (0.0-0.1) 09/08/24 03:27 Nucleated RBC % (auto) 0 % 09/08/24 03:27 Total Counted 100 (0-100) 09/09/24 05:11 Atypical Lymphs % Not Reportable 09/09/24 05:11 Segmented Neutrophils 70 % 09/09/24 05:11 Band Neutrophils Not Reportable 09/09/24 05:11 Lymphocytes (Manual) 10 % 09/09/24 05:11 Monocytes (Manual) 13.0 % 09/09/24 05:11 Absolute Monocytes 1.1 10^3/cmm (0.1-0.6) H 09/09/24 05:11 Eosinophils (Manual) 0 % 09/09/24 05:11 Absolute Eosinophils 0.0 10^3/cmm (0.0-0.7) 09/09/24 05:11 Basophils (Manual) 0.0 % 09/09/24 05:11 Absolute Basophils 0.0 10^3/cmm (0.0-0.2) 09/09/24 05:11 Metamyelocytes 1.0 % 09/09/24 05:11 Myelocytes 6.0 % 09/09/24 05:11 Nucleated RBCs # 0.0 /100WBC 09/08/24 03:27 Platelet Estimate Normal (Normal) 09/09/24 05:11 PT 14.90 SECONDS (12.1-14.9) 09/06/24 00:00 INR 1.09 (0.8-1.2) 09/06/24 00:00 APTT 28.5 SECONDS (23.9-36.7) 09/06/24 00:00 D-Dimer 2.65 ug/mLFEU (0-0.59) H 09/05/24 23:56 Sodium 141 mmol/L (136-145) 09/09/24 05:11 Potassium 4.2 mmol/L (3.5-5.1) 09/09/24 05:11 Chloride 106 mmol/L (98-107) 09/09/24 05:11 Carbon Dioxide 24 mmol/L (22-29) 09/09/24 05:11 Anion Gap 15.2 (5-19) 09/09/24 05:11 BUN 35 mg/dL (8-23) H 09/09/24 05:11 Creatinine 0.8 mg/dL (0.5-0.9) 09/09/24 05:11 GFR Calculation Not Reportable 09/09/24 05:11 Glucose 108 mg/dL (65-115) 09/09/24 05:11 Calculated Osmolality 301 mOsm/kg (285-295) H 09/09/24 05:11 Lactic Acid 2.5 mmol/L (0.5-2.2) H 09/06/24 00:00 Lactic Acid (Sepsis) 1.7 mmol/L (0.5-2.2) 09/06/24 04:00 Calcium 8.6 mg/dL (8.5-10.5) 09/09/24 05:11 Magnesium 2.4 mg/dL (1.7-2.3) H 09/07/24 01:15 Total Bilirubin 0.2 mg/dL (0.15-1.2) 09/09/24 05:11 AST 18 U/L (0-32) 09/09/24 05:11 ALT 15 U/L (0-33) 09/09/24 05:11 Alkaline Phosphatase 60 U/L (35-105) 09/09/24 05:11 Troponin T Baseline 8 ng/L (0-10) 09/07/24 09:27 Troponin T 120 Minute 6.92 ng/L (0-10) 09/07/24 11:20 Delta Troponin T -1.08 ABS# (0-10) L 09/07/24 11:20 Troponin T Hi Sens 6Hr 9.40 ng/L (0-10) 09/07/24 15:22 Troponin T Hi Sens 6Hr Delta 1.40 ng/L (0-12) 09/07/24 15:22 C-Reactive Protein 313.0 mg/L (0.0-4.9) H 09/06/24 00:00 Total Protein 5.6 g/dL (6.6-8.7) L 09/09/24 05:11 Albumin 3.0 g/dL (3.5-5.2) L 09/09/24 05:11 Globulin 2.6 g/dL (1.3-4.6) 09/09/24 05:11 TSH 0.10 uIU/mL (0.27-4.20) L 09/08/24 03:27 Free T4 1.10 ng/dL (0.82-1.77) 09/08/24 03: Free T3 1.4 PG/ML (2.0-4.4) L 09/08/24 03:27 Urine Color Yellow (Yellow) 09/06/24 01:45 Urine Appearance Slightly cloudy (CLEAR) 09/06/24 01:45 Urine pH 5 (5-7) 09/06/24 01:45 Ur Specific [place] 1.015 (1.005-1.030) 09/06/24 01:45 Urine Protein 1+ (Negative) A 09/06/24 01:45 Urine Glucose (UA) Norm (Normal) 09/06/24 01:45 Urine Ketones Negative (Negative) 09/06/24 01:45 Urine Blood Neg (Negative) 09/06/24 01:45 Urine Nitrate Negative (Negative) 09/06/24 01:45 Urine Bilirubin 1+ (Negative) H 09/06/24 01:45 Urine Urobilinogen 1 mg/dL (Negative) H 09/06/24 01:45 Ur Leukocyte Esterase 2+ (Negative) A 09/06/24 01:45 Urine RBC 3-5 /hpf (0-2) 09/06/24 01:45 Urine WBC 51-100 /hpf (0-5) H 09/06/24 01:45 Ur Squamous Epith Cells 11-20 /hpf (0-5) H 09/06/24 01:45 Amorphous Sediment Not Reportable 09/06/24 01:45 Urine Bacteria None seen /hpf (NONE) 09/06/24 01:45 Hyaline Casts 127.02 /lpf 09/06/24 01:45 Influenza A (PCR) Negative (Negative) 09/06/24 01:45 Influenza Type B (PCR) Negative (Negative) 09/06/24 01:45 RSV (PCR) Negative (Negative) 09/06/24 01:45 SARS-CoV-2 (PCR) Negative (Negative) 09/06/24 01:45 Vitals Last Vital Signs Temp 98.0 F 09/09/24 07:52 Pulse 65 09/09/24 08:00 Resp 18 09/09/24 08:00 BP 121/74 09/09/24 07:52 Pulse Ox 96 09/09/24 08:00 O2 Del Method Room Air 09/09/24 08:00 O2 Flow Rate 2 09/08/24 07:29 Discharge Plan Discharge Patient Disposition: Home Condition: Serious Prescriptions: New amiodarone [Pacerone] 200 mg Tablet See Rx Instructions .ROUTE .COMPLEX 30 Days Qty: 30 0RF Rx Instructions: 400mg BID x 4days,then reduce to 200 mg BID for 7 days, then reduce to 200mg daily amoxicillin-pot clavulanate 875-125 mg tablet 1 tab PO BID 4 Days Qty: 8 0RF metoprolol tartrate 25 mg Tablet 12.5 mg PO BID@0900,2100 30 Days Qty: 30 0RF dexamethasone 4 mg Tablet 4 mg PO DAILY 5 Days Qty: 5 0RF Continued lisinopril-hydrochlorothiazide 10-12.5 mg tablet 1 tab PO DAILY aspirin 81 mg tablet,delayed release (DR/EC) 81 mg PO DAILY albuterol sulfate 2.5 mg /3 mL (0.083 %) solution for nebulization 2.5 mg inhalation DAILY fluticasone propionate [Children's Flonase Allergy Rlf] 50 mcg/actuation spray,suspension 1 spray intranasal BID PRN (Reason: congestion) Qty: 16 0RF Rx Instructions: administer into each nostril nitroglycerin 0.4 mg tablet, sublingual 0.4 mg sublingual Q5M PRN (Reason: chest pain) Qty: 25 2RF Rx Instructions: do not exceed 3 doses per episode alendronate 70 mg tablet 70 mg PO Q7D Breztri Aerosphere 160-9-4.8 mcg/actuation HFA aerosol inhaler 2 inh inhalation BID rosuvastatin 20 mg tablet See Rx Instructions .ROUTE .COMPLEX Qty: 90 3RF Dose Instruction: Take 1 tablet by mouth once daily Rx Instructions: Take 1 tablet by mouth once daily levothyroxine 25 mcg tablet 25 mcg PO DAILY albuterol sulfate 90 mcg/actuation HFA aerosol inhaler 2 puff INHALATION Q4H Discontinued metoprolol tartrate 25 mg tablet See Rx Instructions .ROUTE .COMPLEX Qty: 180 3RF Dose Instruction: Take 1 tablet by mouth twice daily Rx Instructions: Take 1 tablet by mouth twice daily Discharge Orders: Discharge Order (Routine); Ordered 09/09/24 Ordered By: Elinor Richards Other Ambulatory Orders: DME: Oxygen (Order) Location: None Selected Ordered By: Elinor Richards MCT/Event Monitor 21 Days (Routine) Timeframe: [id number] Facility: [facility] - Location: Radiology Ordered By: Elinor Richards Referrals: Cony Hudson MD [Primary Care Provider] - 09/14/24 10:45 am ( ) Nadya Sanches MD [Physician] - 2 weeks (new onset a fib with rvr on amiodarone, event monitor, review new medications ) Discharge Diet: Cardiac Discharge Activity: Increase activity as tolerated and Oxygen as instructed Patient Instructions: Opioid Safety Discharge Attestations Time Spent in Discharge Care*: greater than 30 min Quality Metrics Clinical Quality Measures [ No reported AMI, CVA or VTE this stay] Coding Level of Care Code Acute Code for Chg Fwd Diagnoses Sepsis A41.9 Community acquired pneumonia of left upper lobe of lung J18.9 COPD exacerbation J44.1 Atrial fibrillation with RVR I48.91
[2024-09-09] MEDS: FUROsemide 10 mg/mL SDV 2mL 20 MG IVP (13:18)
--- NOTE | 2024-09-09 13:44 | PC.SOCIAL ---
IMM updated IMM dated and initialed, copy placed in chart and copy given to patient
== END 2024-09-09 16:49 | disposition home or self-care (01) | DRG 871 ==
LOC: ER 09-06 01:51 → ICU 09-06 03:47 → CSU 09-08 18:23
PROVIDERS: Family Medicine; Admitting Provider Internal Medicine; Emergency Provider Emergency Medicine; PCP Family Medicine; Visit Provider Student in an Organized Health Care Education/Training Program
DX: A41.9 Sepsis, unspecified organism (principal); J18.9 Pneumonia, unspecified organism; J44.0 Chronic obstructive pulmonary disease with (acute) lower respiratory infection; J44.1 Chronic obstructive pulmonary disease with (acute) exacerbation; N17.9 Acute kidney failure, unspecified; J90 Pleural effusion, not elsewhere classified; E87.1 Hypo-osmolality and hyponatremia; I95.9 Hypotension, unspecified; I25.10 Atherosclerotic heart disease of native coronary artery without angina pectoris; E78.5 Hyperlipidemia, unspecified; Z77.22 Contact with and (suspected) exposure to environmental tobacco smoke (acute) (chronic); I48.91 Unspecified atrial fibrillation; E87.70 Fluid overload, unspecified; Z11.52 Encounter for screening for COVID-19; Z79.83 Long term (current) use of bisphosphonates; Z79.890 Hormone replacement therapy; Z79.899 Other long term (current) drug therapy; Z98.61 Coronary angioplasty status
CPT/HCPCS: 36415; 51702; 70450; 71045; 71275; 74177; 80048; 80053; 81001; 83605; 83735; 84439; 84443; 84481; 84484; 85007; 85025; 85378; 85610; 85730; 86140; 86403; 87040; 87070; 87205; 87426; 87449; 87637; 93005; 93306; 93970; 94640; 94760; 96365; 96366; 96367; 96375; 96376; 99285; A4222; J0282; J0283; J0360; J0456; J0696; J1940; J3490; J7030; J7050; J7613; J7614; J7626; J8540; J9999; Q0144

== ENCOUNTER → 2024-09-17 15:49 | Outpatient (BNVA) | payer MEDICARE, SELFPAY | PROVIDERS: PCP Family Medicine; Visit Provider Nurse Practitioner Family | DX: I48.20 Chronic atrial fibrillation, unspecified (principal); Z79.82 Long term (current) use of aspirin; I51.89 Other ill-defined heart diseases; E78.5 Hyperlipidemia, unspecified | CPT/HCPCS: 99214 ==

== ENCOUNTER 2024-09-27 12:50 | Emergency (ER) | payer MEDICARE, SELFPAY ==
[2024-09-27] VITALS (8 sets, daily range): BP systolic 116–146; BP diastolic 6–96; PULSE 59–76; RESP 16; TEMP 36.6; O2SAT 94–100; BMI 23.0
--- NOTE | 2024-09-27 13:09 | ED_ITS ---
HPI - Altered Mental Status 2 General: Chief Complaint: Altered Mental Status Stated Complaint: dizzy, confusion, neck pain Time Seen by Provider: 09/27/24 13:08 History of Present Illness: 74-year-old female presents emergency ro om complaining of little bit of a headache and what she describes as brain fog. She is concerned she may have a bladder infection. Neck pain no recent trauma that she can recall. Patient does have COPD and she has been having to wear her oxygen more often. She denies any productive cough no hemoptysis. Related Data Home Medications ?Medication ?Instructions ?Recorded ?Confirmed alendronate 70 mg tablet 70 mg PO Q7D 04/30/23 aspirin 81 mg tablet,delayed 81 mg PO DAILY 10/30/23 0 09/27/24 release lisinopril 10 1 tab PO DAILY 10/30/2309/18 mg-hydrochlorothiazide 12.5 mg tablet budesonide 160 mcg-glycopyr 9 2 inh inhalation BID 03/1909/27/24 mcg-formot 4.8 mcg/actuation HFA inhaler (Breztri Aerosphere) albuterol sulfate 90 mcg/actuation 2 puff inhalation Q 4H 09/06/24 09/27/24 aerosol inhaler levothyroxine 25 mcg tablet 25 mcg PO DAILY 09/06/24 0 09/27/24 doxepin 10 mg capsule 10 mg PO DAILY 09/17/2409/18 rosuvastatin 20 mg tablet 20 mg PO DAILY 09/27/2409/18 Previous Rx's ?Medication ?Instructions ?Recorded fluticasone propionate 50 1 spray intranasal BID PRN 0 09/05/24 mcg/actuation nasal congestion #16 grams spray,suspension (Children's Flonase Allergy Relief) amiodarone 200 mg tablet (Pacerone) See Rx Instruction s .Route 09/09/24 .COMPLEX 30 days #30 tabs Allergies Allergy/AdvReac Type Severity Reaction Status Date / Time No Known Allergies Allergy Verified 09/17/24 16:03 Review of Systems 2 Const: Denies: fever(s) or chills Card: Denies: chest pain Resp: Denies: dyspnea GI: Denies: abdominal pain : Denies: dysuria, urinary frequency or urinary urgency Musc: Denies: neck pain or back pain Skin/Breast: Denies: rash PFSH ED 2 PFSH: Medical History (Updated 09/27/24 @ 17:22 by Philipp Chavez DO) Asthma COPD (chronic obstructive pulmonary disease) ASHD (arteriosclerotic heart disease) Dyslipidemia Surgical History S/P PTCA (percutaneous transluminal coronary angioplasty) Family History Father CAD (coronary artery disease) Lung disease Mother Alzheimer's dementia Social History Smoking and tobacco/nicotine status: never used tobacco/nicotine Alcohol intake: current Alcohol intake frequency: holidays/special occasions only Alcohol type: wine Substance/Drug Use: never Additional social history: Patient is accompanied by her Sam. Patient states she wants full code Physical Exam 2 Const: COMMON NORMALS: no acute distress GENERAL APPEARANCE: cooperative and comfortable ORIENTATION/CONSCIOUSNESS: Yes awake, Yes oriented to person, Yes oriented to place and Yes oriented to time HENMT: COMMON NORMALS: normocephalic, atraumatic and hearing grossly normal bilaterally HEAD & SCALP: normocephalic and atraumatic Resp: COMMON NORMALS: normal respiratory effort, No retractions and No use of accessory muscles OTHER: Scant expiratory wheeze Cardio: COMMON NORMALS: regular rate, regular rhythm and No murmurs present (Cardio) RATE: regular rate RHYTHM: regular rhythm GI: COMMON NORMALS: Soft to palpation and No hepatosplenomegaly present A USCULTATION: Yes normoactive bowel sounds PALPATION: Yes Soft to palpation, No Tenderness to palpation present (GI), No Guarding due to palpation present (GI) and Yes No hepatosplenomegaly present Extremity: COMMON NORMALS: normal to inspection, capillary refill normal, no clubbing, cyanosis or edema, no calf tenderness and no pedal edema Neuro: SENSORIUM/ORIENTATION: Yes oriented to person, Yes oriented to place and Yes oriented to time OTHER: No focal neurologic deficits gait normal Romberg negative Skin: COMMON NORMALS: no rashes or lesions noted GENERAL SKIN EXAM: no rashes or lesions noted Course 2 Vital Signs: Vital signs: Vital Signs Temperature 97.8 F 09/27/24 12:56 Pulse Rate 60 09/27/24 18:06 Respiratory Rate 16 09/27/24 12:56 Blood Pressure 127/74 09/27/24 18:06 Pulse Oximetry 94 09/27/24 18:06 Oxygen Delivery Me thod Room Air 09/27/24 12:56 MDM - Altered Mental Status Medical Decision Making Stated complaint and chief complaint unless it is confusion altered mental status or when I talked to the patient she gives a very good history NIH is 0 she has a negative Romberg's and appears any aspect of stroke or posterior stroke involved here. Seems to be more related to her COPD is think at times with activities she is getting mildly hypoxic which gives her lightheadedness dizziness. She has no crepitus in the neck and there is no evidence of nuchal rigidity or meningeal signs. Discharge patient home encouraged her to monitor her oxygen sat she may need oxygen continuously sodium is slightly low she was given normal saline she should have this rechecked with her primary care doctor within the week also monitor blood pressures. Return if has further problems. Lab Data 09/27/24 13:35 09/27/24 13:[address] 09/27/24 13:21 IMPRESSION: 1. No acute intracranial finding. 2. Cortical atrophy is present. 3. Likely mild small-vessel ischemic changes. Laboratory Results WBC 5.25 10^3/uL (3.29-11.43) 09/27/24 13:35 RBC 3.81 10^6/uL (3.85-5.65) L 09/27/24 13:35 Hgb 11.60 g/dL (11.27-16.99) 09/27/24 13:35 Hct 35.1 % (36-47) L 09/27/24 13:35 MCV 92.1 fl (85-98) 09/27/24 13:35 MCH 30.4 pg (27-33) 09/27/24 13:35 MCHC 33.0 g/dL (30-55) 09/27/24 13:35 RDW 11.9 % (12.1-15.1) L 09/27/24 13:35 Plt Count 292 10^3/cmm (157-399) 09/27/24 13:35 MPV 9.2 fL (7.4-10.4) 09/27/24 13:35 Neut % (Auto) 65.1 % 09/27/24 13:35 Lymph % (Auto) 22.1 % 09/27/24 13:35 [place] % (Auto) 8.8 % 09/27/24 13:35 Eos % (Auto) 2.1 % 09/27/24 13:35 Baso % (Auto) 0.8 % 09/27/24 13:35 Neut # (Auto) 3.42 10^3/uL (1.8-7.7) 09/27/24 13:35 Lymph # (Auto) 1.2 10^3/uL (0.8-4.8) 09/27/24 13:35 [place] # (Auto) 0.5 10^3/uL (0.2-0.9) 09/27/24 13:35 Eos # (Auto) 0.1 10^3/uL (0.0-0.8) 09/27/24 13:35 Baso # (Auto) 0.0 10^3/uL (0.0-0.1) 09/27/24 13:35 Nucleated RBC % (auto) 0 % 09/27/24 13:35 Nucleated RBCs # 0.0 /100WBC 09/27/24 13:35 Sodium 124 mmol/L (136-145) L 09/27/24 13:35 Potassium 4.2 mmol/L (3.5-5.1) 09/27/24 13:35 Chloride 89 mmol/L (98-107) L 09/27/24 13:35 Carbon Dioxide 25 mmol/L (22-29) 09/27/24 13:35 Anion Gap 14.2 (5-19) 09/27/24 13:35 BUN 18 mg/dL (8-23) 09/27/24 13:35 Creatinine 0.7 mg/dL (0.5-0.9) 09/27/24 13:35 GFR Calculation Not Reportable 09/27/24 13:35 Glucose 93 mg/dL (65-115) 09/27/24 13:35 Calculated Osmolality 260 mOsm/kg (285-295) L 09/27/24 13:35 Lactic Acid 0.7 mmol/L (0.5-2.2) 09/27/24 13:35 Calcium 8.7 mg/dL (8.5-10.5) 09/27/24 13:35 Total Bilirubin 0.6 mg/dL (0.15-1.2) 09/27/24 13:35 AST 33 U/L (0-32) H 09/27/24 13:35 ALT 26 U/L (0-33) 09/27/24 13:35 Alkaline Phosphatase 58 U/L (35-105) 09/27/24 13:35 Creatine Kinase 97 U/L (26-192) 09/27/24 13:35 C-Reactive Protein 3.0 mg/L (0.0-4.9) 09/27/24 13:35 Total Protein 6.5 g/dL (6.6-8.7) L 09/27/24 13:35 Albumin 3.7 g/dL (3.5-5.2) 09/27/24 13:35 Globulin 2.8 g/dL (1.3-4.6) 09/27/24 13:35 Urine Color Yellow (Yellow) 09/27/24 13:55 Urine Appearance Clear (CLEAR) 09/27/24 13:55 Urine pH 7.0 (5-7) 09/27/24 13:55 Ur Specific [place] 1.005 (1.005-1.030) 09/27/24 13:55 Urine Protein Neg (Negative) 09/27/24 13:55 Urine Glucose (UA) Norm (Normal) 09/27/24 13:55 Urine Ketones Negative (Negative) 09/27/24 13:55 Urine Blood Neg (Negative) 09/27/24 13:55 Urine Nitrate Negative (Negative) 09/27/24 13:55 Urine Bilirubin Neg (Negative) 09/27/24 13:55 Urine Urobilinogen 0.2 mg/dL (Negative) 09/27/24 13:55 Ur Leukocyte Esterase Negative (Negative) 09/27/24 13:55 Amorphous Sediment Not Reportable 09/27/24 13:55 All radiology interpretation(s) finalized by discharge Discharge Plan Discharge Patient Disposition: Home Clinical Impression: Headache, Hyponatremia Condition: Stable Prescriptions: No Action lisinopril-hydrochlorothiazide 10-12.5 mg tablet 1 tab PO DAILY aspirin 81 mg tablet,delayed release (DR/EC) 81 mg PO DAILY fluticasone propionate [Children's Flonase Allergy Rlf] 50 mcg/actuation spray,suspension 1 spray intranasal BID PRN (Reason: congestion) Qty: 16 0RF Rx Instructions: administer into each nostril doxepin 10 mg capsule 10 mg PO DAILY alendronate 70 mg tablet 70 mg PO Q7D Siomara Aerosphere 160-9-4.8 mcg/actuation HFA aerosol inhaler 2 inh inhalation BID levothyroxine 25 mcg tablet 25 mcg PO DAILY albuterol sulfate 90 mcg/actuation HFA aerosol inhaler 2 puff INHALATION Q4H amiodarone [Pacerone] 200 mg Tablet See Rx Instructions .ROUTE .COMPLEX 30 Days Qty: 30 0RF Rx Instructions: 400mg BID x 4days,then reduce to 200 mg BID for 7 days, then reduce to 200mg daily rosuvastatin 20 mg tablet 20 mg PO DAILY Rx Instructions: Take 1 tablet by mouth once daily Discharge Orders: Discharge ED (Routine); Ordered 09/27/24 Ordered By: Philipp Chavez Referrals: Cony Hudson MD [Primary Care Provider, Family Practice] Patient Instructions: Altered Mental Status (ED), Opioid Safety, Pain Management Activity Restrictions/Additional Instructions: Thank you for choosing [facility] for your healthcare needs today. It is very important that you follow up as instructed or that you return to the Emergency Department should you have concerns or if your condition changes or worsens in any way. You were seen in the emergency room with complaint of dizziness generally not feeling well on what you described as brain fog. There was no sign infection your white count was normal inflammatory markers were normal. Horcu sodium was slightly low which we gave you a liter of normal saline for. You should have your sodium rechecked in the next 2 to 3 days. We also treated the headache you were complaining of which did seem to improve your symptoms. Urine showed no sign of infection. Follow-up with your primary care doctor to have the sodium rechecked within the next 3 days continue all your other previously prescribed medications. Print Language: Micronesian Coding Level of Care Code ED Cold Work Operator for Kaylee Vazquez NIH stroke score NIHSS Level Of Consciousness - 1a: 0 Level Of Consciousness Questions - 1b: Both Correct Level Of Consciousness Commands - 1c: Both Correct Best Gaze - 2: Normal Visual Caputo - 3: No Visual Loss Facial Palsy - 4: Normal Motor Arm Right - 5: No Drift Motor Arm Left - 5: No Drift Motor Leg Right - 6: No Drift Motor Leg Left - 6: No Drift Limb Ataxia - 7: Absent Sensory - 8: Normal Best Language - 9: No Aphasia Dysarthia - 10: Normal Extinction And Inattention - 11: 0 Score Total Score: 0
--- NOTE | 2024-09-27 13:21 | CTR_ITS ---
PROCEDURE INFORMATION: Exam: CT Head Without Contrast Exam date and time: 09/27/2024 1:53 PM Age: 74 years old Clinical indication: Dizziness; Additional info: Imbalance TECHNIQUE: Imaging protocol: Computed tomography of the head without contrast. Radiation optimization: All CT scans at this facility use at least one of these dose optimization techniques: automated exposure control; mA and/or kV adjustment per patient size (includes targeted exams where dose is matched to clinical indication); or iterative reconstruction. COMPARISON: CT head wo con* [id number] 09/06/2024 12:48 AM RADIATION DOSE METRICS: Total DLP (mGy-cm): 1028.88 FINDINGS: Brain: No midline shift or acute intracranial finding. Cortical atrophy is present. Periventricular hypodensities are nonspecific and likely representing mild small vessel ischemic changes. Cerebral ventricles: No ventriculomegaly. Paranasal sinuses: Visualized sinuses are unremarkable. No fluid levels. Mastoid air cells: Visualized mastoid air cells are well aerated. Bones: Unremarkable. No acute fracture. Soft tissues: Unremarkable. CT/CT head wo con* [id number] IMPRESSION: 1. No acute intracranial finding. 2. Cortical atrophy is present. 3. Likely mild small-vessel ischemic changes.
[2024-09-27 13:42] LABS: Basophils % 0.8 %; Eosinophils # 0.1 10^3/uL (0.0-0.8); Eosinophils % 2.1 %; Hematocrit 35.1 % (36-47); Lymphocytes # 1.2 10^3/uL (0.8-4.8); Lymphocytes % 22.1 %; Mean Corpuscular Hemoglobin 30.4 pg (27-33); Mean Corpuscular Volume 92.1 fl (85-98); Mean Platelet Volume 9.2 fL (7.4-10.4); Monocytes # 0.5 10^3/uL (0.2-0.9); Monocytes % 8.8 %; Neutrophils # 3.42 10^3/uL (1.8-7.7); Neutrophils % 65.1 %; Nucleated Red Blood Cells % 0 %; Platelet Count 292 10^3/cmm (157-399); Red Blood Count 3.81 10^6/uL (3.85-5.65); Red Cell Distribution Width 11.9 % (12.1-15.1); White Blood Count 5.25 10^3/uL (3.29-11.43)
[2024-09-27 14:02] LABS: Alanine Aminotransferase 26 U/L (0-33); Albumin Level 3.7 g/dL (3.5-5.2); Alkaline Phosphatase 58 U/L (35-105); Anion Gap 14.2 (5-19); Aspartate Amino Transferase 33 U/L (0-32); Blood Urea Nitrogen 18 mg/dL (8-23); Calcium 8.7 mg/dL (8.5-10.5); Carbon Dioxide 25 mmol/L (22-29); Chloride 89 mmol/L (98-107); Creatine Phosphokinase 97 U/L (26-192); Creatinine Clr Calc Pharmacy 53.9584; Globulin 2.8 g/dL (1.3-4.6); Glucose 93 mg/dL (65-115); Lactic Sepsis W/Reflex 0.7 mmol/L (0.5-2.2); Osmolality Calculated 260 mOsm/kg (285-295); Potassium 4.2 mmol/L (3.5-5.1); Sodium 124 mmol/L (136-145); Total Bilirubin 0.6 mg/dL (0.15-1.2); Total Protein 6.5 g/dL (6.6-8.7)
[2024-09-27 14:04] LABS: Add Urine Microscopic? NO
[2024-09-27 14:24] LABS: Add Urine Culture? No; Bilirubin Urine Neg (Negative); Blood Urine Neg (Negative); Charge for UA Resulting for Rev; Glucose Urine UA Norm (Normal); Ketones Urine Negative (Negative); Leukocyte Esterase Urine Negative (Negative); Nitrate Urine Negative (Negative); Protein Urine Neg (Negative); Specific Gravity, Urine 1.005 (1.005-1.030); Urine Appearance Clear (CLEAR); Urine Color Yellow (Yellow); Urobilinogen Urine 0.2 mg/dL (Negative)
[2024-09-27] MEDS: sodium chloride 0.9% 1,000 ML 999 ML IV (15:25)
[2024-09-27] MEDS: prochlorperazine 10 mg/2 mL Inj IVP (15:26)
[2024-09-27] MEDS: ketorolac 30 mg/mL INJ IVP (15:29)
== END 2024-09-27 18:06 | disposition home or self-care (01) ==
PROVIDERS: Emergency Provider Family Medicine; PCP Family Medicine
DX: R51.9 Headache, unspecified (principal); E87.1 Hypo-osmolality and hyponatremia; Z79.82 Long term (current) use of aspirin; E78.5 Hyperlipidemia, unspecified; J44.9 Chronic obstructive pulmonary disease, unspecified
CPT/HCPCS: 70450; 80053; 81003; 82550; 83605; 85025; 86140; 87040; 96374; 96375; 99285; J0780; J1885; J7030

== ENCOUNTER → 2025-01-07 13:19 | Outpatient (BNVA) | payer MEDICARE, SELFPAY | PROVIDERS: PCP Family Medicine; Visit Provider Internal Medicine Cardiovascular Disease | DX: I25.10 Atherosclerotic heart disease of native coronary artery without angina pectoris (principal); I48.20 Chronic atrial fibrillation, unspecified; Z79.82 Long term (current) use of aspirin; Z98.61 Coronary angioplasty status | CPT/HCPCS: 99214 ==

== ENCOUNTER 2025-04-30 08:35 | Outpatient (CLI) | payer MEDICARE, SELFPAY ==
--- NOTE | 2025-04-30 | MM_ITS ---
WS: [id number] BILATERAL SCREENING DIGITAL TOMOSYNTHESIS MAMMOGRAM WITH CAD HISTORY: ANNUAL SCREEENING COMPARISON: 04/29/2024, 04/25/2023 and 12/14/2021 Bilateral CC and MLO views with tomosynthesis and synthetic mammography submitted. Computer aided detection analyzed. Breast composition: The breasts are extremely dense, which lowers the sensitivity of mammography. No suspicious masses, microcalcifications or architectural distortion. Benign calcifications in each breast. MM/MM scr tomosynthesis [id number] IMPRESSION: BI-RADS: 2 - Benign FOLLOW UP: 1 Year Follow-up
== END 2025-04-30 08:36 | disposition home or self-care (01) ==
LOC: RAD 08:37
PROVIDERS: PCP Family Medicine; Visit Provider Family Medicine
DX: Z12.31 Encounter for screening mammogram for malignant neoplasm of breast (principal); R92.343 Mammographic extreme density, bilateral breasts; R92.1 Mammographic calcification found on diagnostic imaging of breast
CPT/HCPCS: 77063; 77067

== ENCOUNTER → 2025-05-04 14:13 | Outpatient (BNVA) | payer MEDICARE, SELFPAY | PROVIDERS: PCP Family Medicine; Visit Provider Internal Medicine Cardiovascular Disease | DX: I25.10 Atherosclerotic heart disease of native coronary artery without angina pectoris (principal); I48.91 Unspecified atrial fibrillation; J44.9 Chronic obstructive pulmonary disease, unspecified; I10 Essential (primary) hypertension | CPT/HCPCS: 99214 ==